=== PATIENT | male | born 1980 | race Caucasian/White ===

== ENCOUNTER 2023-08-16 17:33 | Outpatient (RCR) | payer OTHER, SELFPAY | END 2023-08-16 23:59 | disposition home or self-care (01) | LOC: CRHB 17:33 | PROVIDERS: ATTENDING PHYSICIAN Internal Medicine Cardiovascular Disease; FAMILY PHYSICIAN Physician Assistant Medical | DX: Z95.4 Presence of other heart-valve replacement (principal) | CPT/HCPCS: 93798 ==

== ENCOUNTER 2023-08-18 17:24 | Outpatient (RCR) | payer OTHER, SELFPAY | END 2023-08-18 23:59 | disposition home or self-care (01) | LOC: CRHB 17:24 | PROVIDERS: ATTENDING PHYSICIAN Internal Medicine Cardiovascular Disease; FAMILY PHYSICIAN Physician Assistant Medical | DX: Z95.4 Presence of other heart-valve replacement (principal) | CPT/HCPCS: 93798 ==

== ENCOUNTER → 2023-12-22 08:06 | Outpatient (REF) | payer OTHER, SELFPAY | LOC: RCS 08:06 | PROVIDERS: ATTENDING PHYSICIAN Internal Medicine Cardiovascular Disease; FAMILY PHYSICIAN Physician Assistant Medical | DX: Z98.890 Other specified postprocedural states (principal); I34.0 Nonrheumatic mitral (valve) insufficiency; R00.2 Palpitations | CPT/HCPCS: 93005; 93306 ==

== ENCOUNTER 2024-12-02 12:18 | Inpatient (IN) | payer OTHER, SELFPAY ==
[2024-12-02] VITALS (15 sets, daily range): BP systolic 91–120; BP diastolic 56–73; BMI 22.6
--- NOTE | 2024-12-02 09:50 | ED.GENMED ---
History of Present Illness
<Vitaliy Roman PA-C - Last Filed: 12/02/24 14:03>
General
Chief Complaint: Abdominal Symptoms
Time Seen by Provider: 12/02/24 09:43
History of Present Illness
History of Present Illness:
44-year-old male with history of cochlear implants, and mitral valve insufficiency status post mitral valve repair in 2022 presents to the emergency department for evaluation of melanotic stool and syncopal events. He states he has been having
upper abdominal pain and poor appetite for the past week but in the past 48 hours developed melanotic stool. Last night he had large volume of black vomitus. He is on chronic baby aspirin after cardiac surgery, no anticoagulants. Denies alcohol
or tobacco use. Does not routinely use other NSAIDs. Syncopized in the waiting room prompting emergent evaluation in the ED
Past History
<Vitaliy Roman PA-C - Last Filed: 12/02/24 14:03>
Past History
ED Past Medical History: Psychiatric (Anxiety) and Other (Headaches, Deaf left ear. Valve disorder)
ED Past Surgical History: Other (Duodenum twisted and repaired at one week old., Cochlear implant, Hernia repair)
Social History
Tobacco: Non-smoker
Alcohol: None
Personal: Single
Living: with family
Employment: Employed
Family History
Family History: Other (Noncontributory)
Review of Systems
<Vitaliy Roman PA-C - Last Filed: 12/02/24 14:03>
Review of Systems
Allergies reviewed?: Yes
All Other Systems: ROS reviewed and negative except as documented in HPI and ROS
Phy Exam
<Vitaliy Roman PA-C - Last Filed: 12/02/24 14:03>
Physical Exam
Physical Exam:
GEN: Pale, ill-appearing
HEENT: Oral mucosa moist, no scleral icterus
Cardiac: Tachycardic, regular, thready radial pulses bilaterally
Lung: No respiratory distress, no tachypnea
Abdomen: Soft, nontender
MSK: No gross deformity or injuries
Skin: Good color, profoundly pale
Neuro: Alert, answers questions appropriately
Psych: Calm, cooperative
Course
<Vitaliy Roman PA-C - Last Filed: 12/02/24 14:03>
Orders/Labs/Results
Orders:
Orders
12/02/24 09:48
0.9% Sodium Chloride 1000 ml [Nss] 1,000 ml IV BOLUS
Pantoprazole [Protonix IV] 80 mg IV NOW STA
12/02/24 09:49
Electrocardiogram (*1) Urgent
Reason for Study: Syncope
EKG- Treatment ONCE
12/02/24 09:51
Type+Screen Urgent
Complete Blood Count/With Diff Urgent
Comprehensive Metabolic Panel Urgent
Prothrombin Time Urgent
12/02/24 10:00
Pantoprazole 80 mg/100 ml Nss [Protonix] 80 mg in 100 ml IV Q10H
12/02/24 11:53
Admit/Transfer Patient As Directed
Co-Sign Provider:
Level of Care: Inpatient admission
Assign to:: Telemetry
Physician / Group: Hospitalist
Diagnosis: Melena
Reason for Telemetry: Other
Other Reason for Telemetry: GIB
Date to Stop Telemetry: 12/04/24
Time to Stop Telemetry: 11:00
Reason for Hospitalization: Melena
Expected length of stay greater than two midnights?: Yes
ELOS- Estimated Length of Stay in days: 2
I certify the patient meets the requirements for IP care: Yes
PRN Pain Medication Management As Directed
May give lesser potent ordered pain med per pt: Yes
preference::
Protocol:: Medication orders for pain may be administered in a
manner that supports deferring to patient preference
when the pt is:
- Requesting an ordered lesser potent pain medication.
Least to most potent pain medications are defined
as: acetaminophen < NSAID < tramadol < opioids
(morphine, oxycodone, hydromorphone).
- Requesting a lesser dose of the same medication IF
ORDERED.
- Requesting a less intrusive route of administration
if both routes are prescribed by the provider (PO <
IV).
12/02/24 11:54
Code Status As Directed
Resuscitation Status: Full Code
12/02/24 12:10
Hemoglobin Routine
12/04/24 11:00
DC Protocol for Telemetry ONCE
Abnormal Lab Results
12/02/24 12/02/24
09:51 12:10
WBC 11.7 H 10^3/uL
(4.8-10.8)
RBC 3.97 L 10^6/uL
(4.70-6.10)
Hgb 12.6 L g/dL 12.0 L g/dL
(13.0-18.0) (13.0-18.0)
Hct 36.3 L %
(39.0-52.0)
MCH 31.7 H pg
(27.0-31.0)
MPV 10.6 H fL
(7.4-10.4)
Abs Immat Gran (auto) 0.1 H 10^3/uL
(0-0.05)
Absolute Neuts (auto) 8.0 H 10^3/uL
(1.4-6.5)
PT 16.5 H Sec
(11.4-14.6)
Chloride 115 H mmol/L
(98-107)
Carbon Dioxide 18 L mmol/L
(22-30)
BUN 48 H mg/dl
(9-20)
Glucose 163 H mg/dl
(70-99)
AST 16 L U/L
(17-59)
Total Protein 5.7 L g/dl
(6.3-8.2)
12/02/24 12:10
12/02/24 09:51
Vital Signs
Initial and Last Documented VS:
Initial Vital Signs
Pulse Resp BP Pulse Ox
96 23 92/56 96
12/02/24 09:43 12/02/24 09:43 12/02/24 09:43 12/02/24 09:43
Last Documented Vital Signs
Pulse Resp BP Pulse Ox
94 14 93/67 100
12/02/24 10:15 12/02/24 10:15 12/02/24 10:00 12/02/24 10:15
<Augustin Weldon, DO - Last Filed: 12/02/24 12:00>
Orders/Labs/Results
Orders:
Orders
12/02/24 09:48
0.9% Sodium Chloride 1000 ml [Nss] 1,000 ml IV BOLUS
Pantoprazole [Protonix IV] 80 mg IV NOW STA
12/02/24 09:49
Electrocardiogram (*1) Urgent
Reason for Study: Syncope
EKG- Treatment ONCE
12/02/24 09:51
Type+Screen Urgent
Complete Blood Count/With Diff Urgent
Comprehensive Metabolic Panel Urgent
Prothrombin Time Urgent
12/02/24 10:00
Pantoprazole 80 mg/100 ml Nss [Protonix] 80 mg in 100 ml IV Q10H
12/02/24 11:53
Admit/Transfer Patient As Directed
Co-Sign Provider:
Level of Care: Inpatient admission
Assign to:: Telemetry
Physician / Group: Hospitalist
Diagnosis: Melena
Reason for Telemetry: Other
Other Reason for Telemetry: GIB
Date to Stop Telemetry: 12/04/24
Time to Stop Telemetry: 11:00
Reason for Hospitalization: Melena
Expected length of stay greater than two midnights?: Yes
ELOS- Estimated Length of Stay in days: 2
I certify the patient meets the requirements for IP care: Yes
PRN Pain Medication Management As Directed
May give lesser potent ordered pain med per pt: Yes
preference::
Protocol:: Medication orders for pain may be administered in a
manner that supports deferring to patient preference
when the pt is:
- Requesting an ordered lesser potent pain medication.
Least to most potent pain medications are defined
as: acetaminophen < NSAID < tramadol < opioids
(morphine, oxycodone, hydromorphone).
- Requesting a lesser dose of the same medication IF
ORDERED.
- Requesting a less intrusive route of administration
if both routes are prescribed by the provider (PO <
IV).
12/02/24 11:54
Code Status As Directed
Resuscitation Status: Full Code
12/02/24 12:10
Hemoglobin Routine
12/04/24 11:00
DC Protocol for Telemetry ONCE
Abnormal Lab Results
12/02/24 12/02/24
09:51 12:10
WBC 11.7 H 10^3/uL
(4.8-10.8)
RBC 3.97 L 10^6/uL
(4.70-6.10)
Hgb 12.6 L g/dL 12.0 L g/dL
(13.0-18.0) (13.0-18.0)
Hct 36.3 L %
(39.0-52.0)
MCH 31.7 H pg
(27.0-31.0)
MPV 10.6 H fL
(7.4-10.4)
Abs Immat Gran (auto) 0.1 H 10^3/uL
(0-0.05)
Absolute Neuts (auto) 8.0 H 10^3/uL
(1.4-6.5)
PT 16.5 H Sec
(11.4-14.6)
Chloride 115 H mmol/L
(98-107)
Carbon Dioxide 18 L mmol/L
(22-30)
BUN 48 H mg/dl
(9-20)
Glucose 163 H mg/dl
(70-99)
AST 16 L U/L
(17-59)
Total Protein 5.7 L g/dl
(6.3-8.2)
12/02/24 12:10
12/02/24 09:51
Vital Signs
Initial and Last Documented VS:
Initial Vital Signs
Pulse Resp BP Pulse Ox
96 23 92/56 96
12/02/24 09:43 12/02/24 09:43 12/02/24 09:43 12/02/24 09:43
Last Documented Vital Signs
Pulse Resp BP Pulse Ox
94 14 93/67 100
12/02/24 10:15 12/02/24 10:15 12/02/24 10:00 12/02/24 10:15
<Vitaliy Roman PA-C - Last Filed: 12/02/24 14:03>
MDM/Problems Addressed
MDM/Problems Addressed:
Patient's hemoglobin is acutely decreased however not to the degree suspected on initial evaluation given his pallor and syncope. Nevertheless he has evidence of hematemesis and melena suggestive of upper GI bleed, started on PPI drip and will
admit for further management
<Vitaliy Roman PA-C - Last Filed: 12/02/24 14:03>
*Critical Care Note
Total Time (30-74mins, 75-104mins- exclusive of procedures): Not Applicable
ED Attending Note
<Vitaliy Roman PA-C - Last Filed: 12/02/24 14:03>
-
Portions of this chart may have been created with voice recognition software.� Occasional wrong word or��sound alike� substitutions may have occurred due to the inherent limitations of voice recognition software.
<Augustin Weldon DO - Last Filed: 12/02/24 12:00>
ED Attending Note
Patient seen and examined by attending physician: Yes
I performed the substantive portion of visit, reviewed & personally made and approve the management plan that is documented in note by myself or TITI.: Yes
Discharge Plan
Departure
Patient Disposition: Admit
Date of Disposition: 12/02/24
Time of Disposition: 10:31
Admit to: IMU
Presentation/result/management discussed w/ accepting MD/DO: Hospitalist
Discharge Problem:
Acute upper GI bleed
[2024-12-02] MEDS: PROTONIX IV 80 MG IV (09:59)
[2024-12-02] MEDS: NSS 1000 IV (09:59)
[2024-12-02 10:09] LABS: % Basophils 0.3 % (0-2); % Eosinophils 0.3 % (0-6); % Immature Granulocytes 0.4 % (0-0.5); % Lymphocytes 26.6 % (20.5-51.1); % Monocytes 4.4 % (1.7-9.3); Absolute Immature Granulocytes 0.1 10^3/uL (0-0.05); Absolute Lymphocytes 3.1 10^3/uL (1.2-3.4); Absolute Monocytes 0.5 10^3/uL (0.1-0.6); Hematocrit 36.3 % (39.0-52.0); Hemoglobin 12.6 g/dL (13.0-18.0); Mean Corp Hgb Conc. 34.7 g/dL (33.0-37.0); Mean Corpuscular Hgb 31.7 pg (27.0-31.0); Mean Corpuscular Volume 91.4 fL (80.0-94.0); Mean Platelet Volume 10.6 fL (7.4-10.4); Nucleated Red Blood Cells % 0 % (-); Platelet Count 159 10^3/uL (130-400); Red Blood Cell Count 3.97 10^6/uL (4.70-6.10); Red Cell Dist. Width 12.8 % (11.5-14.5); White Blood Cell Count 11.7 10^3/uL (4.8-10.8)
[2024-12-02] MEDS: PROTONIX 100 IV ×2 (10:21→21:39)
[2024-12-02 10:22] LABS: ALT (SGPT) 16 U/L (0-50); AST (SGOT) 16 U/L (17-59); Albumin 3.7 g/dl (3.5-5.0); Alkaline Phosphatase 47 U/L (38-126); Blood Urea Nitrogen 48 mg/dl (9-20); Calcium 8.6 mg/dl (8.4-10.2); Carbon Dioxide 18 mmol/L (22-30); Chloride 115 mmol/L (98-107); Glucose 163 mg/dl (70-99); Potassium 3.9 mmol/L (3.5-5.1); Sodium 142 mmol/L (135-145); Total Bilirubin 0.6 mg/dl (0.2-1.3); Total Protein 5.7 g/dl (6.3-8.2); eGFR > 60.00
[2024-12-02 10:25] LABS: PT 16.5 Sec (11.4-14.6)
--- NOTE | 2024-12-02 11:12 | HPS.HSE ---
Family Physician
-
Family Physician: Isabela Bates PA-C
Chief Complaint
-
Melena
History of Present Illness
44-year-old male presented with melanotic stool 3 episodes since last night. This morning he also had black-colored vomiting. He also had abdominal pain for the past 1 week had a pre syncopal event in the waiting room. He denies taking any NSAIDs
or drinking any alcohol.
Medical History
Past Medical History
Past Medical History: Reports Psychiatric (Anxiety) and Other
Additional Past Medical History:
Headaches, deafness in left ear, mitral valve disorder, hydrocephalus, migraines
Past Surgical History: Reports Other
Additional Past Surgical History:
Cochlear implant, hernia repair, mitral valve repair, duodenal surgery as a child
Social History
Tobacco: Non-smoker
Alcohol: None
Drug: None
Personal: Single
Living: With Family
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
Family History
Family History: Cancer ( ovarian cancer mother bladder cancer father,)
Allergies / Home Medications
Allergies reflects when Allergies were last updated in [employer].
Home Medications with original date entered in [employer]
Allergy/Medication List:
Allergies
Allergy/AdvReac Type Severity Reaction Status Date / Time
citalopram [From Celexa] Allergy Unknown Verified 12/02/24 09:43
erythromycin base Allergy Exacerbates Verified 12/02/24 09:43
Hearing
Loss
Home Medications
acetaminophen 500 mg tablet (Tylenol Extra Strength) 500 mg PO Q6HPRN PRN MILD PAIN 12/19/19
multivitamin 1 tab PO DAILY Supplement 04/07/23
aspirin 81 mg chewable tablet 81 mg PO DAILY Blood clot prevention/tx #0 tabs 05/16/23
metoprolol succinate 25 mg tablet,extended release 24 hr (Toprol XL) 12.5 mg (1/2 x 25 mg) PO DAILY #30 tabs 05/16/23
loperamide 2 mg tablet 2 mg PO BIDPRN PRN diarrhea 12/02/24
topiramate 100 mg tablet 100 mg PO BID 12/02/24
Review of Systems
-
A 12 point ROS was completed and negative except as noted: Yes
Respiratory: Denies Trouble Breathing
Cardiac: Denies Chest Pain
Abdomen/GI: Reports Abdominal Pain, Vomiting and Black Stools; Denies Bloody Stools
Physical Exam
Vital Signs
Vital Signs
Pulse Resp BP Pulse Ox
94 14 93/67 100
12/02/24 10:15 12/02/24 10:15 12/02/24 10:00 12/02/24 10:15
Physical Exam
General: Other (pale)
Respiratory: Clear
Cardiac: S1/S2 and Regular Rhythm
GI: Soft and Tender (mild epigastric)
Neuro: AO x 3 and Nonfocal/grossly intact
Psych: Intact Judgment/Insight
Laboratory Results
-
12/02/24 09:51
Laboratory Results
PT 16.5 Sec (11.4-14.6) H 12/02/24 09:51
INR 1.30 12/02/24 09:51
Total Bilirubin 0.6 mg/dl (0.2-1.3) 12/02/24 09:51
AST 16 U/L (17-59) L 12/02/24 09:51
ALT 16 U/L (0-50) 12/02/24 09:51
Alkaline Phosphatase 47 U/L (38-126) 12/02/24 09:51
Impression/Plan
-
IMPRESSION/PLAN:
# Melena and 1 episode of coffee-ground emesis
Hemodynamic instability
With elevated BUN likely upper GI bleed
Not on any anticoagulants as outpatient. On aspirin after mitral valve surgery
Follow H&H-if trending lower may need blood. ER is going to follow in order.
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
PPI drip
N.p.o. with IV fluids
Type and screen
GI evaluation-needs EGD
# Pre-syncope likely secondary to upper GI bleed-continue orthostatic check with IV fluids
# Mitral valve repair on 05/12/[address] Bo
Echo 12/22/2023-normal LV size and systolic function. Mild concentric LVH. EF 55 to 60%. Normal diastolic function. Normal RV size and function. Status post mitral valve repair, trace MR
History of pleural effusion post valve repair requiring thoracentesis 850 mL of fluid evacuated on 05/26/23-no cytology available
Hold metoprolol with syncope
# Migraines and hydrocephalus-continue Topamax
# Anxiety
# History of cochlear implant on the right for hearing impairment. Deaf in the left ear
# Hemangioma of the left hepatic lobe
# DVT prophylaxis-SCDs
# Full code
Discussed with ER attending
Discussed with father at bedside
--- NOTE | 2024-12-02 12:48 | CON.GI ---
Addendum entered and electronically signed by David Sears MD 12/02/24 15:48:
I saw and examined the patient.
The PA's note was reviewed and I agree with the note.
Comment:
44-year-old male presenting with multiple episodes of melena and episode of coffee-ground emesis this morning. He had syncopized in the ER. Concerning for intermittent brisk upper GI bleed, plan for EGD today.
Original Note:
Consultation
-
Date/Time Consultation Requested: 12/02/24 1200
Date/Time Consultation Performed: 12/02/24 1245
Requesting Provider: Danae Stevenson MD
Performing Provider: JAGRUTI Allen, David Sears MD
Reason for Consultation: GI bleed
Medical History
Chief Complaint / HPI
Chief Complaint: black stools
History of Present Illness:
Pt is a 44yo with hx MVR 2 years ago on ASA, anxiety, headaches, deafness with cochlear implant , hydrocephalus, liver hemangioma, duodenal surgery as child with onset of black stools. In ER noted with hbg 12.6 with BUN 48 and period of syncope
in waiting room with hypotension. In review with patient did not feel well last PM with multiple black stools. He has small episode of dark emesis several hours ago without recurrence. No hx GI bleed, NSAID use other than ASA or other
anticoagulation use. He admits to recent GERD and mild abdominal pain, but denies odynophagia, dysphagia, prior constipation, diarrhea, or red stools. no hx EGD or colonoscopy in past. No new medications.
Past Medical History
Past Medical History: Psychiatric (anxiety) and Other (headaches, deafness, hydrocephalus, liver hemangioma)
Past Surgical History: Cardiac (MVR) and Other (duodenal surgery as child )
Social History
Tobacco: Non-Smoker
Alcohol: None
Drug: None
Living: With Family
Family History
Family History: Other (brother with ? crohns , mother with ovarian CA, father with bladder CA)
Allergies / Home Medications
Allergy/AdvReac Type Severity Reaction Status Date / Time
citalopram [From Celexa] Allergy Unknown Verified 12/02/24 09:43
erythromycin base Allergy Exacerbates Verified 12/02/24 09:43
Hearing
Loss
�Medication �Instructions �Recorded
acetaminophen 500 mg tablet 500 mg PO Q6HPRN PRN MILD PAIN 12/19/19
(Tylenol Extra Strength)
multivitamin 1 tab PO DAILY Supplement 04/07/23
aspirin 81 mg chewable tablet 81 mg PO DAILY Blood clot 05/16/23
prevention/tx #0 tabs
metoprolol succinate 25 mg 12.5 mg (1/2 x 25 mg) PO DAILY #30 05/16/23
tablet,extended release 24 hr tabs
(Toprol XL)
loperamide 2 mg tablet 2 mg PO BIDPRN PRN diarrhea 12/02/24
topiramate 100 mg tablet 100 mg PO BID 12/02/24
Review of Systems
-
History Source: Patient and Family
Constitutional: Reports No Symptoms
EENT: Reports No Symptoms
Respiratory: Reports No Symptoms
Cardiac: Reports Syncope
Abdomen/GI: Reports Abdominal Pain, Vomiting (x 1 small volume several hours ago without recurrence ) and Black Stools
: Reports No Symptoms
Musculoskeletal: Reports No Symptoms
Skin: Reports No Symptoms
Neurological: Reports Weakness
Endocrine: Reports No Symptoms
Hematologic/Lymphatic: Reports Bleeding
Vital Signs
Pulse Resp BP Pulse Ox
94 14 93/67 100
12/02/24 10:15 12/02/24 10:15 12/02/24 10:00 12/02/24 10:15
Physical Exam
Exam
General: Other (pale appearing, some chronic difficulty with hearing but able to lip read )
HEENT: Normocephalic
Respiratory: Clear
Cardiac: Regular Rhythm
GI: Soft, Non Tender and Non Distended
Musculoskeletal: No Clubbing and No Cyanosis
Skin: Warm and Dry
Neuro: Awake, Alert, AO x 3 and Other (hearing loss )
Psych: Calm
Results
WBC 11.7 10^3/uL (4.8-10.8) H 12/02/24 09:51
Hgb 12.0 g/dL (13.0-18.0) L 12/02/24 12:10
Hct 36.3 % (39.0-52.0) L 12/02/24 09:51
MCV 91.4 fL (80.0-94.0) 12/02/24 09:51
Plt Count 159 10^3/uL (130-400) 12/02/24 09:51
Absolute Neuts (auto) 8.0 10^3/uL (1.4-6.5) H 12/02/24 09:51
PT Cancelled 12/02/24 12:03
INR Cancelled 12/02/24 12:03
Sodium 142 mmol/L (135-145) 12/02/24 09:51
Potassium 3.9 mmol/L (3.5-5.1) 12/02/24 09:51
Chloride 115 mmol/L (98-107) H 12/02/24 09:51
Carbon Dioxide 18 mmol/L (22-30) L 12/02/24 09:51
BUN 48 mg/dl (9-20) H 12/02/24 09:51
Creatinine 1.2 mg/dL (0.7-1.3) 12/02/24 09:51
Calcium 8.6 mg/dl (8.4-10.2) 12/02/24 09:51
Total Bilirubin 0.6 mg/dl (0.2-1.3) 12/02/24 09:51
AST 16 U/L (17-59) L 12/02/24 09:51
ALT 16 U/L (0-50) 12/02/24 09:51
Alkaline Phosphatase 47 U/L (38-126) 12/02/24 09:51
Diagnostic Image Results:
Prior GI Procedures:
EGD: none
Colonoscopy: none
Assessment / Plan
-
Pt is a 44yo with hx MVR 2 years ago on ASA, anxiety, headaches, deafness with cochlear implant , hydrocephalus, liver hemangioma, duodenal surgery as child with onset of black stools. In ER noted with hbg 12.6 with BUN 48 and period of syncope
in waiting room with hypotension. In review with patient did not feel well last PM with multiple black stools. He has small episode of dark emesis several hours ago without recurrence. No hx GI bleed, NSAID use other than ASA or other
anticoagulation use. He admits to recent GERD and mild abdominal pain, but denies odynophagia, dysphagia, prior constipation, diarrhea, or red stools. no hx EGD or colonoscopy in past. No new medications.
-melena
-syncope in ER
-hypotension
-MVR with daily ASA use
-duodenal surgery as due to obstruction
other med problems:
-anxiety
- deafness with cochlear implant
- hydrocephalus
-liver hemangioma
PLAN:
etiology of symptoms related to upper GI bleeding with melena, hypotension, syncope etc - PUD, ectasia, mass vs other
plan for EGD today
cont NPO
trend hbg
cont PPI gtt
family updated
updated nursing staff
-
-
Thank you for consultation and allowing me to participate in the patient's care. Please call the division merchandise manager GI physician during the after hours with any questions or concerns.
[2024-12-02] MEDS: TOPAMAX 100 MG PO (21:39)
[2024-12-03] MEDS: D5/0.45%NACL 1000 IV ×2 (00:07→08:47)
[2024-12-03 01:42] LABS: Hematocrit 27.6 % (39.0-52.0); Hemoglobin 10.2 g/dL (13.0-18.0)
[2024-12-03 03:30] VITALS: BP 113/60
[2024-12-03 06:02] LABS: Hematocrit 27.5 % (39.0-52.0); Hemoglobin 9.9 g/dL (13.0-18.0)
[2024-12-03 06:06] LABS: ALT (SGPT) 16 U/L (0-50); AST (SGOT) 17 U/L (17-59); Albumin 3.1 g/dl (3.5-5.0); Alkaline Phosphatase 46 U/L (38-126); Blood Urea Nitrogen 25 mg/dl (9-20); Carbon Dioxide 19 mmol/L (22-30); Chloride 118 mmol/L (98-107); Estimated Creatinine Clearance 74 ml/min; Glucose 137 mg/dl (70-99); Potassium 4.2 mmol/L (3.5-5.1); Sodium 141 mmol/L (135-145); Total Bilirubin 0.5 mg/dl (0.2-1.3); eGFR > 60.00
[2024-12-03 08:13] VITALS: BP 110/62
[2024-12-03] MEDS: PROTONIX 100 IV ×2 (08:31→18:40)
[2024-12-03] MEDS: TOPAMAX 100 MG PO ×2 (08:31→20:14)
--- NOTE | 2024-12-03 11:26 | W.PN.GI.CBS2 ---
Addendum entered and electronically signed by Tam Bryant MD 12/03/24 16:37:
I saw and evaluated the patient. I reviewed the resident�s note and agree with findings and plan as documented in the resident�s note.
44-year-old male past medical history of mitral valve repair on aspirin, prior duodenal surgery presenting with melena. Underwent upper endoscopy with Dr. Sears yesterday which I personally reviewed the pictures. He was treated with epi and cautery
on a visible vessel of the duodenal ulcer which then bled and Dr. Sears placed an Ovesco. No bloody bowel movements overnight. Slow drift in hemoglobin but suspect he is calibrating from yesterday.
Suspect ulcer either due to aspirin (no other NSAID use) versus H. pylori reviewed with patient today. Recommend IV PPI drip for 72 hours given active bleeding and high risk ulcer. Advance to full liquid today. Will need H. pylori testing
outpatient reviewed with patient as well.
Original Note:
Today's Communication / Plan
-
Advance to full liquid diet
Continuous infusion of Protonix drip to complete 72 hour course.
No BM in past 24 hours-- if no BM by the end of the day, will start bowel regimen
Monitor H&H
Assessment / Plan
-
Pt is a 44yo with hx MVR 2 years ago on ASA, anxiety, headaches, deafness with cochlear implant , hydrocephalus, liver hemangioma, duodenal surgery as child with onset of black stools. In ER noted with hbg 12.6 with BUN 48 and period of syncope
in waiting room with hypotension. In review with patient did not feel well last PM with multiple black stools. He has small episode of dark emesis several hours ago without recurrence. No hx GI bleed, NSAID use other than ASA or other
anticoagulation use. He admits to recent GERD and mild abdominal pain, but denies odynophagia, dysphagia, prior constipation, diarrhea, or red stools. no hx EGD or colonoscopy in past. No new medications.
PLAN
Melena/UGIB with syncope in ER
D/D : 1.NSAID use (pt is on baby ASA), 2.H pylori infection
-s/p endoscopy showing non bleeding duodenal ulcer which became hemorrhagic after cautery---clip was placed, clotted blood in gastric body
-Hx of MVR (repair was in April 2024) with daily ASA use
-duodenal surgery as infant due to obstruction
-Advance to fill liquid diet
-Continuous infusion of Protonix drip to complete 72 hours post endoscopy
-No BM in past 24 hours.
-Monitor H&H-- now 9.5 <10.6
- Outpatient f/u for H pylori eval with urea breath or stool test
other med problems:
-anxiety
- deafness with cochlear implant
- hydrocephalus
-liver hemangioma
Endoscopy results 12/02/24
- Normal esophagus.
- Clotted blood in the gastric body.
- Widely patent duodenoenterostomy, characterized by
healthy appearing mucosa was found.
- Blood in the duodenal bulb and in the second portion
of the duodenum.
- Duodenal ulcer with a nonbleeding visible vessel
(Sunil Class IIa). Treated with bipolar cautery
which became actively hemorrhaging ulcer.
- Spurting duodenal ulcer with a visible vessel. Clip
(MR conditional) was placed. Clip adaptive physical education specialist: Ovesco
Endoscopy. No further bleeding.
- No specimens collected.
Subjective
Subjective
Date of Service: December 03, 2024
Tolerating liquid diet
Objective
Data Reviewed
Laboratory Data:
Laboratory Results
12/03/24 05:27
12/03/24 05:27
Laboratory Results
PT Cancelled 12/02/24 12:03
INR Cancelled 12/02/24 12:03
Total Bilirubin 0.5 mg/dl (0.2-1.3) 12/03/24 05:27
AST 17 U/L (17-59) 12/03/24 05:27
ALT 16 U/L (0-50) 12/03/24 05:27
Alkaline Phosphatase 46 U/L (38-126) 12/03/24 05:27
Vital Signs and I&O:
Vital Signs
Temp Pulse Resp BP Pulse Ox
99 F 91 14 110/62 98
12/03/24 08:13 12/03/24 08:13 12/03/24 08:13 12/03/24 08:13 12/03/24 09:30
I&O
12/02/24 12/03/24 12/04/24
06:59 06:59 06:59
Intake Total 340 / 340
Output Total 800 / 800
Balance -460 / -460
Physical Exam
Physical Exam
HEENT: Anicteric
Cardiology: Normal Sinus Rhythm, S1 and S2
Pulmonary: Clear
GI: Soft, Non Distended and Non Tender
Extremities: No Edema
[2024-12-03 11:49] LABS: Iron 77 ug/dl (49-181)
[2024-12-03 11:58] LABS: Percent Saturation 33 % (20-50); Total Iron Binding Capacity 228 ug/dl (261-462)
[2024-12-03 12:02] VITALS: BP 107/60
[2024-12-03 12:37] LABS: Vitamin D, 25-OH*** 47.6 ng/mL (30-80)
[2024-12-03 12:55] LABS: Ferritin 77.4 ng/ml (17.9-464.0)
--- NOTE | 2024-12-03 13:33 | W.PN.HOSP.TC ---
Today's Communication/Plan
-
PPI GTT
Full Liquids
Assessment / Plan
Assessment / Plan
44-year-old man with melena and 1 episode of coffee-ground emesis
# Melena and 1 episode of coffee-ground emesis secondary to upper GI bleed
Hemodynamic instability on admission
Not on any anticoagulants as outpatient. On aspirin after mitral valve surgery
Acute blood loss anemia secondary to acute GI bleed
Patient has a history of duodenal surgery as a child-diagnosis unclear
EGD 12/02/2024-normal esophagus. Clotted blood in the gastric body. Widely patent duodenal enterostomy characterized by healthy-appearing mucosa. Blood in the duodenal bulb and second portion of the duodenum. Duodenal ulcer with a nonbleeding
visible vessel treated with bipolar cautery which became actively hemorrhaging ulcer. Spurting duodenal ulcer with visible blood vessel clip was placed with no further bleeding.
PPI drip to be continued for 72 hours
Started on clears-advance to full liquids
# Pre-syncope likely secondary to upper GI bleed-continue orthostatic check with IV fluids
# Mitral valve repair on 05/12/[address] Bo
Echo 12/22/2023-normal LV size and systolic function. Mild concentric LVH. EF 55 to 60%. Normal diastolic function. Normal RV size and function. Status post mitral valve repair, trace MR
History of pleural effusion post valve repair requiring thoracentesis 850 mL of fluid evacuated on 05/26/23-no cytology available
Hold metoprolol with syncope and hypotension
# Migraines and hydrocephalus-continue Topamax
# Anxiety-not on medicines
# History of cochlear implant on the right for hearing impairment. Deaf in the left ear
# Hemangioma of the left hepatic lobe
# DVT prophylaxis-SCDs
# Full code
Discussed with father at bedside
Discussed with GI
Anticipated Discharge: Within 24 hours
Subjective/Interval History
-
Date of Service: December 03, 2024
Objective Data
-
Labs:
Laboratory Results
12/03/24 12/03/24
01:31 05:27
Hgb 10.2 L 9.9 L
Hct 27.6 L 27.5 L
Sodium 141
Potassium 4.2
Chloride 118 H
Carbon Dioxide 19 L
BUN 25 H
Creatinine 1.2
Glucose 137 H
Calcium 8.0 L
Total Bilirubin 0.5
AST 17
ALT 16
Alkaline Phosphatase 46
Vital Signs:
Vital Signs
Temp Pulse Resp BP Pulse Ox
98.6 F 97 14 107/60 99
12/03/24 12:02 12/03/24 12:02 12/03/24 12:02 12/03/24 12:02 12/03/24 12:02
I&O
12/02/24 12/03/24 12/04/24
06:59 06:59 06:59
Intake Total 340 / 340
Output Total 800 / 800
Balance -460 / -460
[2024-12-03] MEDS: MAALOX 30 ML PO (13:56)
[2024-12-03 13:57] LABS: Vitamin B12 620 pg/ml (239-931)
[2024-12-03] MEDS: NSS 1000 IV (13:57)
[2024-12-03] MEDS: D5/0.45%NACL IV (15:33)
[2024-12-03 15:47] VITALS: BP 99/50
[2024-12-03 19:35] VITALS: BP 88/52
[2024-12-03 20:57] VITALS: BP 86/50
--- NOTE | 2024-12-03 21:01 | W.PN.UPDATE ---
Update Note
Progress Note Update
BP has been trending down from 99/50-->88/52--> 86/50. hr in 80s, asymptomatic. No sign of bleeding. Patient currently on IVF 75cc/hr will give small bolus and check h&h.
hgb level dropped from 9.9 to 8.4. Will continue monitor h&h q 6hrs and transfer as needed.
[2024-12-03 22:04] LABS: Hematocrit 22.6 % (39.0-52.0); Hemoglobin 8.4 g/dL (13.0-18.0)
[2024-12-03] MEDS: NSS 250 IV (22:22)
[2024-12-04] VITALS (20 sets, daily range): BP systolic 78–111; BP diastolic 44–66
--- NOTE | 2024-12-04 03:23 | PTCARENOTE ---
BP trending down. 107/60 at 1202, 99/50 at 1547, 88/52 at 1935, manual Bp 86/50. He is asymptomatic. Notified [employer]PER[employer] who ordered Q6 H&H. HGB upon blood draw was HGB was 8.4. Notified [employer] who ordered a bolus of normal saline. Manual BP was then 98/52.
[employer] made aware, plan of care ongoing.
[2024-12-04 04:16] LABS: Hematocrit 23.6 % (39.0-52.0); Hemoglobin 8.5 g/dL (13.0-18.0)
[2024-12-04] MEDS: NSS 1000 IV ×2 (04:16→12:38)
[2024-12-04] MEDS: PROTONIX 100 IV ×2 (04:18→15:18)
[2024-12-04] MEDS: TYLENOL 650 MG PO (08:21)
[2024-12-04] MEDS: NSS 250 IV ×2 (08:28→12:18)
[2024-12-04 09:09] LABS: Hematocrit 22.3 % (39.0-52.0); Hemoglobin 7.9 g/dL (13.0-18.0); Hemoglobin 8.1 g/dL (13.0-18.0); Mean Corp Hgb Conc. 35.9 g/dL (33.0-37.0); Mean Corpuscular Volume 89.1 fL (80.0-94.0); Mean Platelet Volume 10.5 fL (7.4-10.4); Platelet Count 110 10^3/uL (130-400); Red Blood Cell Count 2.47 10^6/uL (4.70-6.10); Red Cell Dist. Width 12.9 % (11.5-14.5); White Blood Cell Count 9.1 10^3/uL (4.8-10.8)
--- NOTE | 2024-12-04 09:19 | W.PN.HOSP.TC ---
Today's Communication/Plan
-
Add a.m. TSH and cortisol level
Blood cultures
Chest x-ray
Obstruction series
Keep n.p.o. until x-rays are back
IV fluids with bolus and maintenance
Urinalysis
Assessment / Plan
Assessment / Plan
44-year-old man with melena and 1 episode of coffee-ground emesis
Seen earlier late documentation.
Fever of 100.6. Patient feels tired but no other symptoms. Denied abdominal pain. Has not had a bowel movement since ER. Has a cough no dysuria. Blood pressure low this morning
On examination awake alert
Denies any symptoms
Cardiovascular system S1-S2 appreciated
Chest few rales bilaterally
Abdomen soft and nontender
# Melena and 1 episode of coffee-ground emesis secondary to upper GI bleed
Hemodynamic instability on admission
Not on any anticoagulants as outpatient. On aspirin after mitral valve surgery
Acute blood loss anemia secondary to acute GI bleed
Patient has a history of duodenal surgery as a child-diagnosis unclear
EGD 12/02/2024-normal esophagus. Clotted blood in the gastric body. Widely patent duodenal enterostomy characterized by healthy-appearing mucosa. Blood in the duodenal bulb and second portion of the duodenum. Duodenal ulcer with a nonbleeding
visible vessel treated with bipolar cautery which became actively hemorrhaging ulcer. Spurting duodenal ulcer with visible blood vessel clip was placed with no further bleeding.
PPI drip to be continued for 72 hours
Obstr series per GI advise.
Started on clears-advance to full liquids-Hold NPO NOW till GI evaluates.
# Pre-syncope likely secondary to upper GI bleed-continue orthostatic check with IV fluids. Check TSH and cortisol level
# Hypotension-unclear reason if secondary to GI bleed versus other. Patient is not symptomatic. Bolus with maintenance IV fluids ordered. Check blood pressure both extremities. Continue to hold metoprolol
# Fever-evening of 12/02/2024-likely postoperative fever. 1 more episode of 100.6 this morning. Check blood cultures chest x-ray, urinalysis with reflex to culture,
# Mitral valve repair on 05/12/[address] Bo
Echo 12/22/2023-normal LV size and systolic function. Mild concentric LVH. EF 55 to 60%. Normal diastolic function. Normal RV size and function. Status post mitral valve repair, trace MR
History of pleural effusion post valve repair requiring thoracentesis 850 mL of fluid evacuated on 05/26/23-no cytology available
Hold metoprolol with syncope and hypotension
# Migraines and hydrocephalus-hold Topamax this morning until blood pressure stable
# Anxiety-not on medicines
# History of cochlear implant on the right for hearing impairment. Deaf in the left ear
# Hemangioma of the left hepatic lobe
# DVT prophylaxis-SCDs
# Full code
Discussed with nursing at bedside
Discussed with GI
Anticipated Discharge: > 48 hours
Subjective/Interval History
-
Date of Service: December 04, 2024
Objective Data
-
Labs:
Laboratory Results
12/03/24 12/04/24 12/04/24
21:58 04:00 08:50
WBC 9.1
Hgb 8.4 L 8.5 L 7.9 L
Hct 22.6 L 23.6 L
Plt Count
Sodium
Potassium
Chloride
Carbon Dioxide
BUN
Creatinine
Glucose
Calcium
12/04/24 12/04/24 12/04/24
08:50 08:50 15:00
WBC
Hgb 8.1 L Pending
Hct 22.0 L 22.3 L Pending
Plt Count 110 L D
Sodium Pending
Potassium Pending
Chloride Pending
Carbon Dioxide Pending
BUN Pending
Creatinine Pending
Glucose Pending
Calcium Pending
Vital Signs:
Vital Signs
Temp Pulse Resp BP Pulse Ox
100.6 F H 93 18 86/44 96
12/04/24 07:00 12/04/24 07:00 12/04/24 07:00 12/04/24 08:03 12/04/24 07:00
I&O
12/03/24 12/04/24 12/05/24
06:59 06:59 06:59
Intake Total 340 / 340 480 / 480 120 / 120
Output Total 800 / 800 700 / 700
Balance -460 / -460 -220 / -220 120 / 120
[2024-12-04] MEDS: TOPAMAX PO (10:04)
--- NOTE | 2024-12-04 10:05 | W.PN.GI.CBS2 ---
Addendum entered and electronically signed by Tam Bryant MD 12/04/24 13:21:
Xray noted likely aspiration PNA primary team will treat with antibiotics.
Will change to clear liquid diet and monitor hb and for overt bleeding.
d/w hospitalist
Addendum entered and electronically signed by Tam Bryant MD 12/04/24 11:45:
I saw and evaluated the patient. I reviewed the resident�s note and agree with findings and plan as documented in the resident�s note.
44-year-old male past medical history of mitral valve repair on aspirin, prior duodenal surgery presenting with melena. Underwent upper endoscopy with Dr. Sears 12/02 which I personally reviewed the pictures. He was treated with epi and cautery on a
visible vessel of the duodenal ulcer which then bled and Dr. Sears placed an Ovesco. No bloody bowel movements overnight - still remains with no BM. Slow drift in hemoglobin but suspect he is calibrating.
Suspect ulcer either due to aspirin (no other NSAID use) versus H. pylori. Recommend IV PPI drip for 72 hours given active bleeding and high risk ulcer. Will need H. pylori testing outpatient reviewed with patient as well.
Today he was febrile and hypotensive; does elicit a cough. Could have PNA; diff dx includes perforation but would expect more abdominal pain. Lower suspicion active bleeding causing the hypotension given no overt bleed; Hb went from 8.4 last pm to
8.1 today. Will follow up obs series.
D/w hospitalist.
Original Note:
Today's Communication / Plan
-
Goal to stabilize blood pressure
Questionable for infection, would not proceed with EGD
No active signs of bleeding
Hemoglobin 8.1, monitor closely
Keep n.p.o. for now
Assessment / Plan
-
Pt is a 44yo with hx MVR 2 years ago on ASA, anxiety, headaches, deafness with cochlear implant , hydrocephalus, liver hemangioma, duodenal surgery as child with onset of black stools. In ER noted with hbg 12.6 with BUN 48 and period of syncope
in waiting room with hypotension. In review with patient did not feel well last PM with multiple black stools. He has small episode of dark emesis several hours ago without recurrence. No hx GI bleed, NSAID use other than ASA or other
anticoagulation use. He admits to recent GERD and mild abdominal pain, but denies odynophagia, dysphagia, prior constipation, diarrhea, or red stools. no hx EGD or colonoscopy in past. No new medications. This morning patient became hypotensive
and had one episode of fever.
PLAN
Melena/UGIB with syncope in ER
Fever
Hypotension
D/D : 1.NSAID use (pt is on baby ASA), 2.H pylori infection
-s/p endoscopy showing non bleeding duodenal ulcer which became hemorrhagic after cautery---clip was placed, clotted blood in gastric body
-Patient has 1 episode of fever in the past 24 hours and is hypotensive-- 86/48.
-Agree with IV fluids. Chest x-ray, UA, blood cultures, obstructive series have been ordered per primary team
-Hemoglobin is down to 8.1. No active signs of bleeding
- Will not proceed with EGD, questionable for infection.
-Keep NPO for now
-Continuous infusion of Protonix drip to complete 72 hours post endoscopy
-No BM in past 48 hours.
other med problems:
-anxiety
- deafness with cochlear implant
- hydrocephalus
-liver hemangioma
Endoscopy results 12/02/24
- Normal esophagus.
- Clotted blood in the gastric body.
- Widely patent duodenoenterostomy, characterized by
healthy appearing mucosa was found.
- Blood in the duodenal bulb and in the second portion
of the duodenum.
- Duodenal ulcer with a nonbleeding visible vessel
(Sunil Class IIa). Treated with bipolar cautery
which became actively hemorrhaging ulcer.
- Spurting duodenal ulcer with a visible vessel. Clip
(MR conditional) was placed. 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
Endoscopy. No further bleeding.
- No specimens collected.
Subjective
Subjective
Date of Service: December 04, 2024
Hypotensive with repeated blood pressures recently pressures 84/48,patient reports that he feels weak. A.m. hemoglobin is 8.1 <8.5. No bowel movement in the past 48 hours.
Objective
Data Reviewed
Laboratory Data:
Laboratory Results
PT Cancelled 12/02/24 12:03
INR Cancelled 12/02/24 12:03
Total Bilirubin 0.5 mg/dl (0.2-1.3) 12/03/24 05:27
AST 17 U/L (17-59) 12/03/24 05:27
ALT 16 U/L (0-50) 12/03/24 05:27
Alkaline Phosphatase 46 U/L (38-126) 12/03/24 05:27
Vital Signs and I&O:
Vital Signs
Temp Pulse Resp BP Pulse Ox
98.4 F 88 16 84/46 96
12/04/24 09:51 12/04/24 10:03 12/04/24 10:03 12/04/24 09:51 12/04/24 10:03
I&O
12/03/24 12/04/24 12/05/24
06:59 06:59 06:59
Intake Total 340 / 340 480 / 480 120 / 120
Output Total 800 / 800 700 / 700
Balance -460 / -460 -220 / -220 120 / 120
Physical Exam
Physical Exam
HEENT: Anicteric
Cardiology: Normal Sinus Rhythm, S1 and S2
Pulmonary: Clear
GI: Soft, Non Distended and Non Tender
[2024-12-04 10:07] LABS: Blood Urea Nitrogen 16 mg/dl (9-20); Calcium 7.2 mg/dl (8.4-10.2); Carbon Dioxide 18 mmol/L (22-30); Chloride 117 mmol/L (98-107); Estimated Creatinine Clearance 81 ml/min; Glucose 97 mg/dl (70-99); Potassium 3.6 mmol/L (3.5-5.1); Sodium 137 mmol/L (135-145); eGFR > 60.00
--- NOTE | 2024-12-04 10:29 | W.PN.UPDATE ---
Addendum entered and electronically signed by Danae Willoughby MD 12/04/24 10:56:
Hemoglobin slowly dropping
May need transfusion if keeps dropping and patient is hypotensive
Called again and spoke to father
Total time spent today over 50 minutes
Addendum entered and electronically signed by Danae Willoughby MD 12/04/24 10:31:
Empiric ceftriaxone after blood cultures
Original Note:
Update Note
Progress Note Update
Blood pressure still lower after the bolus.
Will move patient to IMU for closer monitoring
X-ray still pending
Called and left a message for father
[2024-12-04 10:56] LABS: TSH 1.19 uIU/ml (0.47-4.68)
--- NOTE | 2024-12-04 11:30 | PTCARENOTE ---
Pt having BP 80s/40s. temp 100.6F. MD made aware, IV bolus and tylenol administered, holding topamax per MD order. Pt having dizziness when standing, but otherwise asymptomatic. Pt denies chills, abdominal pain and tenderness, belly is soft,
nondistended. No BM's overnight. Hospitalist and GI saw pt @bedside. No improvement in BP after bolus. pt sent to CXR. Transfer orders obtained. Report called and pt transferred to higher level of care.
[2024-12-04] MEDS: NSS IV (11:42)
[2024-12-04] MEDS: ROCEPHIN 1000 MG IV (12:19)
[2024-12-04] MEDS: STERILE WATER FOR INJECTION 10 ML IV (12:19)
--- NOTE | 2024-12-04 12:45 | CM ---
CM following re: discharge planning.
Reviewed pt's chart, met with pt.
Pt is a 43 year old male, admitted with primary dx of Melena and 1 episode of coffee-ground emesis
Pt reports he lives with father and a brother in a 2SH, 6 steps to enter. 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 No DME, VN or SNF history.
PCP: Isabela Bates
Ph[facility]acy: [facility]
D/CF plan: home with anticipated no needs. Family to transport
CM will follow with discharge plan updates as hospitalization progresses
--- NOTE | 2024-12-04 12:48 | PTCARENOTE ---
Pt received from floor to ICU bed 3360 as IMU overflow. Pt AAOx3. Reporting dizziness. Also pale and hypotensive. Dr Willoughby notified. Additional 250ml bolus given. Next Hgb check ordered at 1500.
Sinus rhythm. No edema noted. Lungs CTA. Voided 350ml clear yellow urine. Sample sent to lab. Abdomen soft. Denies pain. Hyperactive bowel sounds noted.
--- NOTE | 2024-12-04 12:56 | W.PN.UPDATE ---
Update Note
Progress Note Update
X-ray and obstruction studies noted-likely has aspiration pneumonia secondary to vomiting and atelectasis. Continue ceftriaxone
Hypotension may be multifactorial including bleeding with hemoglobin drop
Use pressors if needed to keep MAP over 65 mmHg
If hemoglobin drops will give PRBCs
[2024-12-04 13:06] LABS: Urine Albumin Negative (Neg - Trace); Urine Bilirubin Negative (Negative); Urine Character Clear (Clear); Urine Color Yellow; Urine Glucose Negative (Negative); Urine Ketone Negative (Negative); Urine Leukocyte Negative (Negative); Urine Nitrite Negative (Negative); Urine Occult Blood Negative (Negative); Urine Urobilinogen Negative (Neg - 1+); Urine pH 6.5 (5.0-9.0)
--- NOTE | 2024-12-04 14:53 | W.PN.UPDATE ---
Update Note
Progress Note Update
met with pt and father
He feels tired.
PRN Levophed
Unclear cause of shock
If Hb drops will transfuse
Consent obtained
D/W RN
D/W father.
[2024-12-04] MEDS: PROTONIX IV (15:19)
[2024-12-04 15:28] LABS: Hematocrit 20.8 % (39.0-52.0); Hemoglobin 7.5 g/dL (13.0-18.0)
--- NOTE | 2024-12-04 17:02 | W.PN.UPDATE ---
Update Note
Progress Note Update
Hemoglobin 7.5-transfuse 1 unit of blood
--- NOTE | 2024-12-04 18:32 | PTCARENOTE ---
1 unit PRBC infusing per order. Pt continues to report dizziness. Ate less than half bowl of chicken broth for lunch. Refused clear liquids for dinner. Denies nausea or abdominal pain.
Transferred to IMU bed 3351 with blood and Protonix gtt infusing.
--- NOTE | 2024-12-04 18:42 | PTCARENOTE ---
Transferred into [facility]- IMU monitors intact. PRBC infusing without difficulty. ST 90 on tele BP 95/59. Tolerating clear liq diet at this time. Call caldwell in reach.
[2024-12-04] MEDS: TOPAMAX 100 MG PO (19:51)
[2024-12-05] VITALS (9 sets, daily range): BP systolic 97–114; BP diastolic 62–73
[2024-12-05] MEDS: PROTONIX 100 IV ×3 (00:51→21:23)
[2024-12-05] MEDS: NSS 1000 IV ×2 (00:51→08:57)
[2024-12-05 05:13] LABS: Hemoglobin 9.8 g/dL (13.0-18.0); Mean Corpuscular Hgb 31.3 pg (27.0-31.0); Mean Corpuscular Volume 89.5 fL (80.0-94.0); Mean Platelet Volume 10.5 fL (7.4-10.4); Platelet Count 128 10^3/uL (130-400); Red Blood Cell Count 3.13 10^6/uL (4.70-6.10); Red Cell Dist. Width 13.2 % (11.5-14.5); White Blood Cell Count 7.6 10^3/uL (4.8-10.8)
[2024-12-05 05:30] LABS: Blood Urea Nitrogen 10 mg/dl (9-20); Calcium 7.5 mg/dl (8.4-10.2); Carbon Dioxide 18 mmol/L (22-30); Chloride 119 mmol/L (98-107); Estimated Creatinine Clearance 81 ml/min; Glucose 89 mg/dl (70-99); Potassium 3.5 mmol/L (3.5-5.1); Sodium 139 mmol/L (135-145); eGFR > 60.00
--- NOTE | 2024-12-05 06:25 | PTCARENOTE ---
No acute events overnight. One unit PRBCs completed. No s/s of bleeding. Am hgb 9.8.
--- NOTE | 2024-12-05 07:38 | W.PN.GI.CBS2 ---
Addendum entered and electronically signed by Tam Bryant MD 12/05/24 15:27:
I saw and evaluated the patient. I reviewed the resident�s note and agree with findings and plan as documented in the resident�s note.
44-year-old male past medical history of mitral valve repair on aspirin, prior duodenal surgery presenting with melena. Underwent upper endoscopy with Dr. Sears 12/02 which I personally reviewed the pictures. He was treated with epi and cautery on a
visible vessel of the duodenal ulcer which then bled and Dr. Seras placed an Ovesco.
Suspect ulcer either due to aspirin (no other NSAID use) versus H. pylori. Recommend IV PPI drip for 72 hours given active bleeding and high risk ulcer. Will need H. pylori testing outpatient reviewed with patient as well.
Had hypotension and fever - found to have right sided PNA. Suspect aspiration he did vomit prior to his admission here. BP improved with antibiotics. Do not suspect hypotension is from bleeding - no overt bleeding and slow drift in hemoglobin
suspect more likely he is calibrating/diluational. However, given the drift in hemoglobin will do a second look endoscopy tomorrow as long as stable from respiratory standpoint; can consider sooner if develops overt bleeding and drop in Hb. D/w
anesthesia best to wait at least 24 hours with recent PNA yesterday unless active bleeding.
Original Note:
Today's Communication / Plan
-
Continue clears
Will wait for full 24 hours to make sure the patient is stable unless there is an active bleeding. He has not had any bowel movements in 3 days.
NPO after midnight
EGD tomorrow
Assessment / Plan
-
44-year-old male with past medical history of mitral valve repair on aspirin, prior duodenal surgery presenting with melena. Patient underwent endoscopy on 12/02 showing nonbleeding duodenal ulcer which became hemorrhagic after cautery and clip was
placed. 24 hours after the procedure patient was febrile and hypotensive with HB trending down, he was transferred to IMU, x-ray and obstruction studies noted likely has aspiration pneumonia secondary to cough. No overt bleed. Hemoglobin dropped
to 7.5 and 1 unit of PRBC transfused, HB today is 9.8. No bowel movements in the past 72 hours.
PLAN
Melena/UGIB with syncope in ER
Fever
Hypotension ---improved
D/D : Suspect ulcer with ASA use vs H pylori infection
-s/p endoscopy showing non bleeding duodenal ulcer which became hemorrhagic after cautery---clip was placed, clotted blood in gastric body
- X-ray and obstruction studies noted likely has aspiration pneumonia secondary to cough. IV ceftriaxone was initiated
- Low suspicious of active bleeding causing the hypotension given no overt bleed.
- Patient was not given pressors as BP improved with fluids --100/68
-Will wait for full 24 hours to make sure that the patient is stable unless there is active bleeding. He has not had any bowel movements and his hemoglobin dropping but slowly.
-Repeat hemoglobin today is 9.8 improved from 7.5 after one unit PRBC 12/04.
-Plan EGD tomorrow.
-Continue PPI drip for today.
-Continue clears
other med problems:
-anxiety
- deafness with cochlear implant
- hydrocephalus
-liver hemangioma
Endoscopy results 12/02/24
- Normal esophagus.
- Clotted blood in the gastric body.
- Widely patent duodenoenterostomy, characterized by
healthy appearing mucosa was found.
- Blood in the duodenal bulb and in the second portion
of the duodenum.
- Duodenal ulcer with a nonbleeding visible vessel
(Sunil Class IIa). Treated with bipolar cautery
which became actively hemorrhaging ulcer.
- Spurting duodenal ulcer with a visible vessel. Clip
(MR conditional) was placed. 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
Endoscopy. No further bleeding.
- No specimens collected.
Subjective
Subjective
Date of Service: December 05, 2024
HB dropped to 7.5, one unit of PRBC given yesterday, HB today 9.8, patient transferred to IMU.
Objective
Data Reviewed
Laboratory Data:
Laboratory Results
12/05/24 04:47
12/05/24 04:47
Laboratory Results
PT Cancelled 12/02/24 12:03
INR Cancelled 12/02/24 12:03
Total Bilirubin 0.5 mg/dl (0.2-1.3) 12/03/24 05:27
AST 17 U/L (17-59) 12/03/24 05:27
ALT 16 U/L (0-50) 12/03/24 05:27
Alkaline Phosphatase 46 U/L (38-126) 12/03/24 05:27
Vital Signs and I&O:
Vital Signs
Temp Pulse Resp BP Pulse Ox
98.6 F 86 21 107/70 92
12/05/24 07:34 12/05/24 06:00 12/05/24 06:00 12/05/24 06:00 12/05/24 06:00
I&O
12/04/24 12/05/24 12/06/24
06:59 06:59 06:59
Intake Total 480 / 480 2059 / 2059
Output Total 700 / 700 3100 / 3100
Balance -220 / -220 -1040 / -1040
Physical Exam
Physical Exam
Cardiology: Normal Sinus Rhythm
Pulmonary: Clear
GI: Soft, Non Distended and Non Tender
[2024-12-05] MEDS: TOPAMAX 100 MG PO ×2 (08:58→19:43)
--- NOTE | 2024-12-05 10:42 | PTCARENOTE ---
Assumed care of patient this morning. Pt denies any pain or nausea but states he just feels 'stiff from laying in bed for 2 days.' Patient was going to go for EDG today but it is now pushed to tomorrow. Advised we can get up to chair today if VS
stay stable and not symptomatic. Pt switched back to clear liquids, pt has a poor appetite, only took few bites of breakfast. Pt reports he is deaf without his cochlear implant on his head. He frequently takes it off because he does not like it and
prolonged wearing hurts his head. Assessment, care and VS as charted.
--- NOTE | 2024-12-05 11:56 | W.PN.HOSP.TC ---
Today's Communication/Plan
-
Clear liquid diet
Much hemoglobin
Watch for any bleeding
Continue antibiotics today
Hold off on further fluids and watch
Assessment / Plan
Assessment / Plan
44-year-old man with melena and 1 episode of coffee-ground emesis
On examination awake alert
Denies any symptoms
Cardiovascular system S1-S2 appreciated
Chest CTA
Abdomen soft and nontender
# Melena and 1 episode of coffee-ground emesis secondary to upper GI bleed
Hemodynamic instability on admission
Not on any anticoagulants as outpatient. On aspirin after mitral valve surgery
Acute blood loss anemia secondary to acute GI bleed
Patient has a history of duodenal surgery as a child-diagnosis unclear
EGD 12/02/2024-normal esophagus. Clotted blood in the gastric body. Widely patent duodenal enterostomy characterized by healthy-appearing mucosa. Blood in the duodenal bulb and second portion of the duodenum. Duodenal ulcer with a nonbleeding
visible vessel treated with bipolar cautery which became actively hemorrhaging ulcer. Spurting duodenal ulcer with visible blood vessel clip was placed with no further bleeding.
PPI drip to be continued
Started on clears
Status post 1 unit of packed red blood cells on 12/04/2024.
Hemoglobin stable today.
GI holding off on EGD today. N.p.o. after midnight in case if he needs an EGD tomorrow.
# Pre-syncope likely secondary to upper GI bleed-continue orthostatic check with IV fluids.
# Hypotension-12/04/2024-unclear reason if secondary to GI bleed versus other. Patient is not symptomatic. Continue to hold metoprolol. Blood pressure improved.
# Aspiration pneumonia/pneumonitis-ceftriaxone started-continue for now
# Fever-evening of 12/02/2024-likely postoperative fever. Treat aspiration pneumonia/pneumonitis with a short course of antibiotics
# Mitral valve repair on 05/12/[address] Bo
Echo 12/22/2023-normal LV size and systolic function. Mild concentric LVH. EF 55 to 60%. Normal diastolic function. Normal RV size and function. Status post mitral valve repair, trace MR
History of pleural effusion post valve repair requiring thoracentesis 850 mL of fluid evacuated on 05/26/23-no cytology available
Hold metoprolol with syncope and hypotension
# Migraines and hydrocephalus-Topamax
# Anxiety-not on medicines
# History of cochlear implant on the right for hearing impairment. Deaf in the left ear
# Hemangioma of the left hepatic lobe
# DVT prophylaxis-SCDs
# Full code
Discussed with nursing
Discussed with GI
Anticipated Discharge: Within 24 hours
Subjective/Interval History
-
Date of Service: December 05, 2024
Objective Data
-
Labs:
Laboratory Results
12/05/24
04:47
WBC 7.6
Hgb 9.8 L D
Hct 28.0 L
Plt Count 128 L
Sodium 139
Potassium 3.5
Chloride 119 H
Carbon Dioxide 18 L
BUN 10
Creatinine 1.1
Glucose 89
Calcium 7.5 L
Vital Signs:
Vital Signs
Temp Pulse Resp BP Pulse Ox
98.0 F 87 20 113/73 95
12/05/24 11:30 12/05/24 10:00 12/05/24 10:00 12/05/24 10:00 12/05/24 11:54
I&O
12/04/24 12/05/24 12/06/24
06:59 06:59 06:59
Intake Total 480 / 480 2059
Output Total 700 / 700 3100 / 3100 825 / 825
Balance -220 / -220 -1040 / -1040 -825 / -825
[2024-12-05] MEDS: ROCEPHIN 1000 MG IV (12:28)
[2024-12-05] MEDS: STERILE WATER FOR INJECTION 10 ML IV (12:28)
--- NOTE | 2024-12-05 15:01 | PN.CDI ---
CDI
- -
CDI:
Physician Documentation Request
Admit Date: 12/02/24 12:18
Dear Doctor,
Please review the following and provide your response in the progress notes.
Current documentation includes a diagnosis of hypotension.
Clinical Indicators:
Pt admitted with upper GI bleed.
12/04 Update progress notes:' Blood pressure still lower after the bolus.
Will move patient to IMU for closer monitoring...Hemoglobin slowly dropping
May need transfusion if keeps dropping and patient is hypotensive...
Hypotension may be multifactorial including bleeding with hemoglobin drop
Unclear cause of shock
Hemoglobin 7.5-transfuse 1 unit of blood'
12/05 GI Note: 's/p endoscopy showing non bleeding duodenal ulcer which became hemorrhagic after cautery---clip was placed, clotted blood in gastric body.
12/04- 12/05 Pt received 3 liters IVF.
Please clarify which of the following is suspected the most likely type of shock of the above symptoms and treatment rendered:
Hypovolemic shock - indicate if due to surgery, trauma or other etiology
Hemorrhagic shock - indicate if due to surgery, trauma or other etiology
Other
Use of terms such as suspected, likely, concern for, or probable (associated with a specific diagnosis that is being evaluated, monitored, or treated as if it exists) are acceptable and can be coded in the inpatient setting, when documented at the
time of discharge.
Thank you,
Mignon Pena RN, BSN
CDI Specialist
[place] [facility]
Please use your independent medical judgment in providing your response.
[2024-12-06] VITALS (18 sets, daily range): BP systolic 17–121; BP diastolic 53–93
[2024-12-06 04:41] LABS: Hematocrit 30.6 % (39.0-52.0); Hemoglobin 10.9 g/dL (13.0-18.0); Mean Corp Hgb Conc. 35.6 g/dL (33.0-37.0); Mean Corpuscular Hgb 32.1 pg (27.0-31.0); Mean Platelet Volume 10.2 fL (7.4-10.4); Platelet Count 159 10^3/uL (130-400); Red Cell Dist. Width 13.2 % (11.5-14.5); White Blood Cell Count 9.1 10^3/uL (4.8-10.8)
--- NOTE | 2024-12-06 05:03 | PTCARENOTE ---
No acute events overnight. Afebrile. No s/s of bleeding. NPO at midnight for endoscopy today. Remained on room air.
[2024-12-06] MEDS: PROTONIX 100 IV (06:26)
--- NOTE | 2024-12-06 10:33 | W.PN.GI.CBS2 ---
Documented by User: Michael Rebollar MD, Resident 12/06/24 10:45
Today's Communication / Plan
-
Added Carafate 1 g PO twice daily. It can cause constipation, okay to use MiraLAX as needed.
Clear liquid diet for now then transition to full liquid later in the day.
Assessment / Plan
-
44-year-old male with past medical history of mitral valve repair on aspirin, prior duodenal surgery presenting with melena. Patient underwent endoscopy on 12/02 showing nonbleeding duodenal ulcer which became hemorrhagic after cautery and clip was
placed. 24 hours after the procedure patient was febrile and hypotensive with HB trending down, he was transferred to IMU, x-ray and obstruction studies noted likely has aspiration pneumonia secondary to cough. No overt bleed. Hemoglobin dropped
to 7.5 and 1 unit of PRBC transfused 12/04. Patient underwent repeat endoscopy on 12/06 revealed patchy moderately erythematous mucosa was found in the duodenal bulb, one nonbleeding superficial duodenal ulcer with a [employer] clip noted with some
oozing on touching with endoscope.
PLAN
Melena/UGIB with syncope in ER
Fever--improved/resolved
Hypotension ---improved/resolved
D/D : Suspect ulcer with ASA use vs H pylori infection
-s/p endoscopy showing non bleeding duodenal ulcer which became hemorrhagic after cautery---clip was placed, clotted blood in gastric body
- X-ray and obstruction studies noted likely has aspiration pneumonia secondary to cough. IV ceftriaxone was initiated
- Low suspicious of active bleeding causing the hypotension given no overt bleed.
- Patient was not given pressors as BP improved with fluids --100/68
-Repeat hemoglobin today is 9.8 improved from 7.5 after one unit PRBC 12/04.
-Repeat endoscopy 12/06 revealed no rebleeding and patchy moderately erythematous mucosa was found in the duodenal bulb, and 1 nonbleeding superficial duodenal ulcer.
- Added Carafate 1 g PO twice daily. It can cause constipation, okay to use MiraLAX as needed.
- Clear liquid diet for now then transition to full liquid later in the day.
other med problems:
-anxiety
- deafness with cochlear implant
- hydrocephalus
-liver hemangioma
Endoscopy results 12/02/24
- Normal esophagus.
- Clotted blood in the gastric body.
- Widely patent duodenoenterostomy, characterized by
healthy appearing mucosa was found.
- Blood in the duodenal bulb and in the second portion
of the duodenum.
- Duodenal ulcer with a nonbleeding visible vessel
(Sunil Class IIa). Treated with bipolar cautery
which became actively hemorrhaging ulcer.
- Spurting duodenal ulcer with a visible vessel. Clip
(MR conditional) was placed. Clip strategic partnership representative: [employer]
Endoscopy. No further bleeding.
- No specimens collected.
Endoscopy results 12/06
The examined esophagus was normal.
The Z-line was variable and was found 40 cm from the incisors.
A 1 cm hiatal hernia was present.
No gross lesions were noted in the entire examined stomach.
Patchy moderately erythematous mucosa was found in the duodenal bulb.
One non-bleeding superficial duodenal ulcer with [employer] clip noted with
some oozing on touching with the endoscope was found in the second
portion of the duodenum. The oozing stopped at the end of the procedure.
Subjective
Subjective
Date of Service: December 06, 2024
No overnight events, no bowel movement since 12/02
Objective
Data Reviewed
Laboratory Data:
Laboratory Results
12/06/24 04:20
12/05/24 04:47
Laboratory Results
PT Cancelled 12/02/24 12:03
INR Cancelled 12/02/24 12:03
Total Bilirubin 0.5 mg/dl (0.2-1.3) 12/03/24 05:27
AST 17 U/L (17-59) 12/03/24 05:27
ALT 16 U/L (0-50) 12/03/24 05:27
Alkaline Phosphatase 46 U/L (38-126) 12/03/24 05:27
Vital Signs and I&O:
Vital Signs
Temp Pulse Resp BP Pulse Ox
97.8 F 74 99 97/66 100
12/06/24 10:15 12/06/24 10:15 12/06/24 10:15 12/06/24 10:15 12/06/24 06:00
I&O
12/05/24 12/06/24 12/07/24
06:59 06:59 06:59
Intake Total 2060 / 2060 1680 / 1680
Output Total 3100 / 3100 1375 / 1375
Balance -1040 / -1040 305 / 305
Physical Exam
Physical Exam
Cardiology: Normal Sinus Rhythm
Pulmonary: Clear
GI: Soft, Non Distended, Non Tender and Normal Bowel Sounds

Documented by User: Promise Christensen MD 12/06/24 15:02
Assessment / Plan
-
44-year-old male with past medical history of mitral valve repair on aspirin, prior duodenal surgery presenting with melena. Patient underwent endoscopy on 12/02 showing nonbleeding duodenal ulcer which became hemorrhagic after cautery and clip was
placed. 24 hours after the procedure patient was febrile and hypotensive with HB trending down, he was transferred to IMU, x-ray and obstruction studies noted likely has aspiration pneumonia secondary to cough. No overt bleed. Hemoglobin dropped
to 7.5 and 1 unit of PRBC transfused 12/04. Patient underwent repeat endoscopy on 12/06 revealed patchy moderately erythematous mucosa was found in the duodenal bulb, one nonbleeding superficial duodenal ulcer with a [employer] clip noted with some
oozing on touching with endoscope.
PLAN
Melena/UGIB with syncope in ER
Fever--improved/resolved
Hypotension ---improved/resolved
D/D : Suspect ulcer with ASA use vs H pylori infection
-s/p endoscopy showing non bleeding duodenal ulcer which became hemorrhagic after cautery---clip was placed, clotted blood in gastric body
- X-ray and obstruction studies noted likely has aspiration pneumonia secondary to cough. IV ceftriaxone was initiated
-Repeat hemoglobin today is 9.8 improved from 7.5 after one unit PRBC 12/04.
-Repeat endoscopy 12/06 revealed no rebleeding and patchy moderately erythematous mucosa was found in the duodenal bulb, and 1 nonbleeding superficial duodenal ulcer.
- Added Carafate 1 g PO twice daily. It can cause constipation, okay to use MiraLAX as needed.
- Clear liquid diet for now then transition to full liquid later in the day.
other med problems:
-anxiety
- deafness with cochlear implant
- hydrocephalus
-liver hemangioma
Endoscopy results 12/02/24
- Normal esophagus.
- Clotted blood in the gastric body.
- Widely patent duodenoenterostomy, characterized by
healthy appearing mucosa was found.
- Blood in the duodenal bulb and in the second portion
of the duodenum.
- Duodenal ulcer with a nonbleeding visible vessel
(Sunil Class IIa). Treated with bipolar cautery
which became actively hemorrhaging ulcer.
- Spurting duodenal ulcer with a visible vessel. Clip
(MR conditional) was placed. Clip strategic partnership representative: [employer]
Endoscopy. No further bleeding.
- No specimens collected.
Endoscopy results 12/06
The examined esophagus was normal.
The Z-line was variable and was found 40 cm from the incisors.
A 1 cm hiatal hernia was present.
No gross lesions were noted in the entire examined stomach.
Patchy moderately erythematous mucosa was found in the duodenal bulb.
One non-bleeding superficial duodenal ulcer with [employer] clip noted with
some oozing on touching with the endoscope was found in the second
portion of the duodenum. The oozing stopped at the end of the procedure.
--- NOTE | 2024-12-06 10:40 | W.PN.HOSP.TC ---
Today's Communication/Plan
-
hold off on metoprolol today. Will consider restarting it tomorrow as long as blood pressure remains stable
Clear liquids
Continue PPI
Transfer to telemetry
Encourage out of bed and ambulation with supervision
Assessment / Plan
Assessment / Plan
44-year-old man with melena and 1 episode of coffee-ground emesis
On examination awake alert
Denies any symptoms except feeling tired
Cardiovascular system S1-S2 appreciated
Chest CTA
Abdomen soft and nontender
Patient was seen earlier prior to EGD. Patient since then had EGD therefore documenting EGD findings also.
# Melena and 1 episode of coffee-ground emesis secondary to upper GI bleed
Hemodynamic instability on admission
Not on any anticoagulants as outpatient. On aspirin after mitral valve surgery
Acute blood loss anemia secondary to acute GI bleed
Patient has a history of duodenal surgery as a child-diagnosis unclear
EGD 12/02/2024-normal esophagus. Clotted blood in the gastric body. Widely patent duodenal enterostomy characterized by healthy-appearing mucosa. Blood in the duodenal bulb and second portion of the duodenum. Duodenal ulcer with a nonbleeding
visible vessel treated with bipolar cautery which became actively hemorrhaging ulcer. Spurting duodenal ulcer with visible blood vessel clip was placed with no further bleeding.
EGD 12/06/2024-normal esophagus. Z-line variable, at 40 cm from the incisors. 1 cm hiatal hernia. No gross lesions in the entire stomach. Erythematous duodenopathy. Nonbleeding duodenal ulcer with clip noted with some oozing on touching with
endoscopy
PPI drip to be continued twice daily, plan to advance to full liquid later today
Started on clears
Status post 1 unit of packed red blood cells on 12/04/2024.
Hemoglobin stable today.
# Pre-syncope likely secondary to upper GI bleed-stop IV fluids
# Hypotension-12/04/2024-unclear reason if secondary to GI bleed versus other. Patient is not symptomatic. Continue to hold metoprolol. Blood pressure improved.
# Aspiration pneumonia/pneumonitis-ceftriaxone started-continue for now total of 5 days.
# Fever-evening of 12/02/2024-likely postoperative fever. Treat aspiration pneumonia/pneumonitis with a short course of antibiotics
# Mitral valve repair on 05/12/[address] Bo
Echo 12/22/2023-normal LV size and systolic function. Mild concentric LVH. EF 55 to 60%. Normal diastolic function. Normal RV size and function. Status post mitral valve repair, trace MR
History of pleural effusion post valve repair requiring thoracentesis 850 mL of fluid evacuated on 05/26/23-no cytology available
Hold metoprolol
# Migraines and hydrocephalus-Topamax
# Anxiety-not on medicines
# History of cochlear implant on the right for hearing impairment. Deaf in the left ear
# Hemangioma of the left hepatic lobe
# DVT prophylaxis-SCDs
# Full code
Advised to ambulate and get out of bed and sit in the chair more time
Discussed with nursing at bedside
Discussed with GI
Anticipated Discharge: Within 24 hours
Subjective/Interval History
-
Date of Service: December 06, 2024
Objective Data
-
Labs:
Laboratory Results
12/06/24
04:20
WBC 9.1
Hgb 10.9 L
Hct 30.6 L
Plt Count 159 D
Vital Signs:
Vital Signs
Temp Pulse Resp BP Pulse Ox
97.8 F 74 99 97/66 100
12/06/24 10:15 12/06/24 10:15 12/06/24 10:15 12/06/24 10:15 12/06/24 06:00
I&O
12/05/24 12/06/24 12/07/24
06:59 06:59 06:59
Intake Total 2059 1680 / 1680
Output Total 3100 / 3100 1375 / 1375
Balance -1040 / -1040 305 / 305
--- NOTE | 2024-12-06 11:06 | PTCARENOTE ---
Addendum entered by Selam Schwab RN 12/06/24 11:08:
Currently Returned via stretcher/ tele, Ox3 no pain remains pale. BP 95/53 SR 80. Water provided- Pt updated on plan of care.
Original Note:
NPO , voided coil connector repairer sent to GI lab via w/c and telemetry by volunteer via visitor elevator.
[2024-12-06] MEDS: TOPAMAX 100 MG PO ×2 (13:07→19:58)
[2024-12-06] MEDS: CARAFATE SUSPENSION 1 GM PO ×2 (13:07→19:57)
[2024-12-06] MEDS: ROCEPHIN 1000 MG IV (13:07)
[2024-12-06] MEDS: STERILE WATER FOR INJECTION 10 ML IV (13:07)
[2024-12-06] MEDS: PROTONIX IV 40 MG IV ×2 (13:08→19:58)
[2024-12-06] MEDS: NSS (PRESERVATIVE FREE) 10 ML IV ×2 (13:08→19:57)
--- NOTE | 2024-12-06 13:19 | STATUS ---
SITUATION:
pt c/o blurriness right eye w white dot last 10-15 min now resolved
BACKGROUND:
s/p EGD - was given propaphol sedation. BP low side 90s/50s
hx head trauma/ deaf with cochlear implant right side
ASSESSMENT:
neuro check gcs 15 SANJU, NIH 0
RECOMMENDATION:
Dr. Willoughby notified and seen at bedside. Monitor for now.
--- NOTE | 2024-12-06 13:48 | W.PN.UPDATE ---
Update Note
Progress Note Update
Nursing notified that patient had an episode of blurry vision. Patient states that this is not new for him and he gets blurry vision. He also has a history of migraines and he takes Topamax. Patient was back to normal pressure was slightly on the
low side and patient also came back from anesthesia. Monitor for any changes.
--- NOTE | 2024-12-06 16:07 | PTCARENOTE ---
Report given to Traci- transfer to [id number] with tele.
--- NOTE | 2024-12-06 18:15 | CM ---
Patien with Dx UGI bleed. Clear liquids. Receiving IV Abx. Per nurse; ambulatory in room. Transfer from IMU to today.
CM continuing to follow.
No CM d/c planning needs identified.
Plan home.
[2024-12-07 03:14] VITALS: BP 104/63
[2024-12-07 06:05] LABS: Hematocrit 28.1 % (39.0-52.0); Hemoglobin 10.4 g/dL (13.0-18.0); Mean Corpuscular Hgb 32.3 pg (27.0-31.0); Mean Corpuscular Volume 87.3 fL (80.0-94.0); Mean Platelet Volume 9.8 fL (7.4-10.4); Platelet Count 180 10^3/uL (130-400); Red Blood Cell Count 3.22 10^6/uL (4.70-6.10); Red Cell Dist. Width 13.4 % (11.5-14.5); White Blood Cell Count 9.8 10^3/uL (4.8-10.8)
[2024-12-07 06:35] LABS: Blood Urea Nitrogen 10 mg/dl (9-20); Carbon Dioxide 16 mmol/L (22-30); Chloride 114 mmol/L (98-107); Estimated Creatinine Clearance 99 ml/min; Glucose 87 mg/dl (70-99); Potassium 3.5 mmol/L (3.5-5.1); Sodium 138 mmol/L (135-145); eGFR > 60.00
[2024-12-07 07:00] VITALS: BP 102/67
[2024-12-07] MEDS: CARAFATE SUSPENSION 1 GM PO ×2 (08:45→19:51)
[2024-12-07] MEDS: PROTONIX IV 40 MG IV ×2 (08:45→19:52)
[2024-12-07] MEDS: NSS (PRESERVATIVE FREE) 10 ML IV ×2 (08:46→19:52)
[2024-12-07] MEDS: FLUSH (NSS) 2 FLUSH IV ×2 (08:46→12:10)
[2024-12-07] MEDS: TOPAMAX 100 MG PO ×2 (08:46→19:52)
--- NOTE | 2024-12-07 09:27 | W.PN.GI.CBS2 ---
Today's Communication / Plan
-
Plan
- Protonix (pantoprazole) 40 mg PO BID.- Use sucralfate suspension 1 gram PO BID.
Will advance to low residue diet today.
Avoid NSAIDs.
Repeat upper endoscopy in 8 weeks to check healing. At that time,need to take biopsies in the stomach/duodenum for H.pylori bacteria.
Carafate can cause constipation, OK to use Miralax as needed if constipated. Okay to stop Carafate in 2 weeks. Need to space out this medication by at least 2 hours with the other medication as it decreases the absorption of the other
medicine .
Will set up for an appointment with our office in 6 weeks.
Discussed with patient to monitor for any black stool or maroon or red stool, call her office immediately if that were to happen.
Will give a dose of MiraLAX today.
Assessment / Plan
-
44-year-old male with past medical history of mitral valve repair on aspirin, prior duodenal surgery presenting with melena. Patient underwent endoscopy on 12/02 showing nonbleeding duodenal ulcer which became hemorrhagic after cautery and clip was
placed. 24 hours after the procedure patient was febrile and hypotensive with HB trending down, he was transferred to IMU, x-ray and obstruction studies noted likely has aspiration pneumonia secondary to cough. No overt bleed. Hemoglobin dropped
to 7.5 and 1 unit of PRBC transfused 12/04. Patient underwent repeat endoscopy on 12/06 revealed patchy moderately erythematous mucosa was found in the duodenal bulb, one nonbleeding superficial duodenal ulcer with a [employer] clip noted with some
oozing on touching with endoscope.
PLAN
Melena/UGIB with syncope in ER
Fever--improved/resolved
Hypotension ---improved/resolved
D/D : Suspect ulcer with ASA use vs H pylori infection
-s/p endoscopy showing non bleeding duodenal ulcer which became hemorrhagic after cautery---clip was placed, clotted blood in gastric body
- X-ray and obstruction studies noted likely has aspiration pneumonia secondary to cough. IV ceftriaxone was initiated
-Repeat hemoglobin today is 9.8 improved from 7.5 after one unit PRBC 12/04.
-Repeat endoscopy 12/06 revealed no rebleeding and patchy moderately erythematous mucosa was found in the duodenal bulb, and 1 nonbleeding superficial duodenal ulcer.
- Added Carafate 1 g PO twice daily. It can cause constipation, okay to use MiraLAX as needed.
- Clear liquid diet for now then transition to full liquid later in the day.
other med problems:
-anxiety
- deafness with cochlear implant
- hydrocephalus
-liver hemangioma
Endoscopy results 12/02/24
- Normal esophagus.
- Clotted blood in the gastric body.
- Widely patent duodenoenterostomy, characterized by
healthy appearing mucosa was found.
- Blood in the duodenal bulb and in the second portion
of the duodenum.
- Duodenal ulcer with a nonbleeding visible vessel
(Sunil Class IIa). Treated with bipolar cautery
which became actively hemorrhaging ulcer.
- Spurting duodenal ulcer with a visible vessel. Clip
(MR conditional) was placed. Clip ribbon inker: [employer]
Endoscopy. No further bleeding.
- No specimens collected.
Endoscopy results 12/06
The examined esophagus was normal.
The Z-line was variable and was found 40 cm from the incisors.
A 1 cm hiatal hernia was present.
No gross lesions were noted in the entire examined stomach.
Patchy moderately erythematous mucosa was found in the duodenal bulb.
One non-bleeding superficial duodenal ulcer with [employer] clip noted with
some oozing on touching with the endoscope was found in the second
portion of the duodenum. The oozing stopped at the end of the procedure.
Plan
- Protonix (pantoprazole) 40 mg PO BID.- Use sucralfate suspension 1 gram PO BID.
Will advance to low residue diet today.
Avoid NSAIDs.
Repeat upper endoscopy in 8 weeks to check healing. At that time,need to take biopsies in the stomach/duodenum for H.pylori bacteria.
Carafate can cause constipation, OK to use Miralax as needed if constipated. Okay to stop Carafate in 2 weeks. Need to space out this medication by at least 2 hours with the other medication as it decreases the absorption of the other
medicine .
Will set up for an appointment with our office in 6 weeks.
Discussed with patient to monitor for any black stool or maroon or red stool, call her office immediately if that were to happen.
Will give a dose of MiraLAX today.
Subjective
Subjective
Date of Service: December 07, 2024
Patient without any abdominal pain, nausea or vomiting. No bowel movements yet. Tolerating clear liquid diet.
Objective
Data Reviewed
Laboratory Data:
Laboratory Results
12/07/24 05:39
12/07/24 05:39
Laboratory Results
PT Cancelled 12/02/24 12:03
INR Cancelled 12/02/24 12:03
Total Bilirubin 0.5 mg/dl (0.2-1.3) 12/03/24 05:27
AST 17 U/L (17-59) 12/03/24 05:27
ALT 16 U/L (0-50) 12/03/24 05:27
Alkaline Phosphatase 46 U/L (38-126) 12/03/24 05:27
Vital Signs and I&O:
Vital Signs
Temp Pulse Resp BP Pulse Ox
98.3 F 89 18 102/67 98
12/07/24 07:00 12/07/24 07:00 12/07/24 07:00 12/07/24 07:00 12/07/24 07:00
I&O
12/06/24 12/07/24 12/08/24
06:59 06:59 06:59
Intake Total 1680 / 1680
Output Total 1375 / 1375
Balance 305 / 305
Physical Exam
Physical Exam
GI: Soft, Non Distended and Non Tender
[2024-12-07 11:20] VITALS: BP 101/67
--- NOTE | 2024-12-07 12:05 | PTCARENOTE ---
patient in bathroom getting washed at sink, upon walking back to bed heart rate elevated to 140's, patient assisted to bed, reporting feeling heart racing, and shortness of breath. within a minute heart rate returned to 90's and dyspnea improved.
plan of care on going.
[2024-12-07] MEDS: STERILE WATER FOR INJECTION 10 ML IV (12:10)
[2024-12-07] MEDS: ROCEPHIN 1000 MG IV (12:10)
[2024-12-07] MEDS: TOPROL XL 12.5 MG PO (12:43)
--- NOTE | 2024-12-07 13:53 | W.PN.HOSP.TC ---
Today's Communication/Plan
-
Restart BB
CXR
PO Bicarb
Possible discharge tomorrow if stable.
Assessment / Plan
Assessment / Plan
44-year-old man with melena and 1 episode of coffee-ground emesis
On examination awake alert
Denies any symptoms except feeling tired
Cardiovascular system S1-S2 appreciated
Chest CTA
Abdomen soft and nontender
Patient was seen earlier . Patient was washing up and ambulated and his heart rate went up and also he felt slightly short of breath.
# Melena and 1 episode of coffee-ground emesis secondary to upper GI bleed
Hemodynamic instability on admission
Not on any anticoagulants as outpatient. On aspirin after mitral valve surgery
Acute blood loss anemia secondary to acute GI bleed
Patient has a history of duodenal surgery as a child-diagnosis unclear
EGD 12/02/2024-normal esophagus. Clotted blood in the gastric body. Widely patent duodenal enterostomy characterized by healthy-appearing mucosa. Blood in the duodenal bulb and second portion of the duodenum. Duodenal ulcer with a nonbleeding
visible vessel treated with bipolar cautery which became actively hemorrhaging ulcer. Spurting duodenal ulcer with visible blood vessel clip was placed with no further bleeding.
EGD 12/06/2024-normal esophagus. Z-line variable, at 40 cm from the incisors. 1 cm hiatal hernia. No gross lesions in the entire stomach. Erythematous duodenopathy. Nonbleeding duodenal ulcer with clip noted with some oozing on touching with
endoscopy
PPI continued twice daily,
Plan LR diet today
Status post 1 unit of packed red blood cells on 12/04/2024.
Hemoglobin stable today.
# Pre-syncope likely secondary to upper GI bleed
# Tachycardia-his Lopressor has been on hold. Restarted
# Metabolic acidosis also. This could be hyperchloremic secondary to IV fluids. Will provide p.o. bicarb
# Hypotension-12/04/2024-unclear reason if secondary to GI bleed versus other. Patient is not symptomatic. Continue to hold metoprolol. Blood pressure improved.
# Aspiration pneumonia/pneumonitis-ceftriaxone started-continue for now total of 5 days.
# Fever-evening of 12/02/2024-likely postoperative fever. Treat aspiration pneumonia/pneumonitis with a short course of antibiotics
# Mitral valve repair on 05/12/[address] Bo
Echo 12/22/2023-normal LV size and systolic function. Mild concentric LVH. EF 55 to 60%. Normal diastolic function. Normal RV size and function. Status post mitral valve repair, trace MR
History of pleural effusion post valve repair requiring thoracentesis 850 mL of fluid evacuated on 05/26/23-no cytology available
Hold metoprolol
# Migraines and hydrocephalus-Topamax
# Anxiety-not on medicines
# History of cochlear implant on the right for hearing impairment. Deaf in the left ear
# Hemangioma of the left hepatic lobe
# DVT prophylaxis-SCDs
# Full code
Discussed with nursing at bedside
Anticipated Discharge: Within 24 hours
Subjective/Interval History
-
Date of Service: December 07, 2024
Objective Data
-
Labs:
Laboratory Results
12/07/24
05:39
WBC 9.8
Hgb 10.4 L
Hct 28.1 L
Plt Count 180
Sodium 138
Potassium 3.5
Chloride 114 H
Carbon Dioxide 16 L
BUN 10
Creatinine 0.9
Glucose 87
Calcium 8.0 L
Vital Signs:
Vital Signs
Temp Pulse Resp BP Pulse Ox
98.4 F 92 18 101/67 98
12/07/24 11:20 12/07/24 11:20 12/07/24 11:20 12/07/24 11:20 12/07/24 11:20
I&O
05/23/25 05/24/25 05/25/25
06:59 06:59 06:59
Intake Total 1680 / 1680
Output Total 1375 / 1375
Balance 305 / 305
[2024-12-07 15:44] VITALS: BP 100/62
[2024-12-07] MEDS: SODIUM BICARBONATE 650 MG PO ×2 (17:52→21:40)
[2024-12-07 19:46] VITALS: BP 99/67
[2024-12-07 23:33] VITALS: BP 92/59
[2024-12-08 03:55] VITALS: BP 97/66
[2024-12-08 06:18] LABS: Hematocrit 31.7 % (39.0-52.0); Hemoglobin 11.5 g/dL (13.0-18.0); Mean Corp Hgb Conc. 36.3 g/dL (33.0-37.0); Mean Corpuscular Volume 88.3 fL (80.0-94.0); Mean Platelet Volume 9.4 fL (7.4-10.4); Platelet Count 202 10^3/uL (130-400); Red Blood Cell Count 3.59 10^6/uL (4.70-6.10); Red Cell Dist. Width 13.8 % (11.5-14.5); White Blood Cell Count 13.6 10^3/uL (4.8-10.8)
[2024-12-08 06:53] LABS: Blood Urea Nitrogen 10 mg/dl (9-20); Calcium 8.4 mg/dl (8.4-10.2); Carbon Dioxide 19 mmol/L (22-30); Chloride 114 mmol/L (98-107); Estimated Creatinine Clearance 81 ml/min; Glucose 89 mg/dl (70-99); Potassium 3.8 mmol/L (3.5-5.1); Sodium 141 mmol/L (135-145); eGFR > 60.00
[2024-12-08 07:07] VITALS: BP 101/63
[2024-12-08] MEDS: CARAFATE SUSPENSION 1 GM PO ×2 (08:05→20:29)
[2024-12-08] MEDS: TOPAMAX 100 MG PO ×2 (08:06→20:30)
[2024-12-08] MEDS: PROTONIX IV 40 MG IV (08:06)
[2024-12-08] MEDS: SODIUM BICARBONATE 650 MG PO (08:06)
[2024-12-08] MEDS: NSS (PRESERVATIVE FREE) 10 ML IV (08:06)
[2024-12-08] MEDS: TOPROL XL 12.5 MG PO (08:06)
--- NOTE | 2024-12-08 10:07 | W.PN.GI.CBS2 ---
Today's Communication / Plan
-
Protonix (pantoprazole) 40 mg PO BID. Use sucralfate suspension 1 gram PO BID.
Tolerating low residue diet.
Avoid NSAIDs.
Repeat upper endoscopy in 8 weeks to check healing. At that time,need to take biopsies in the stomach/duodenum for H.pylori bacteria.
Carafate can cause constipation, OK to use Miralax as needed if constipated. Okay to stop Carafate in 2 weeks. Need to space out this medication by at least 2 hours with the other medication as it decreases the absorption of the other
medicine .
Sent message to my office to set up for an appointment with our office in 6 weeks.
Discussed with patient to monitor for any black stool or maroon or red stool, call her office immediately if that were to happen.
Okay to start aspirin but discussed with patient not to take aspirin in combination with NSAIDs for steroids as it increases risk of ulcer disease.
Will sign off, please call back if needed.
Assessment / Plan
-
44-year-old male with past medical history of mitral valve repair on aspirin, prior duodenal surgery presenting with melena. Patient underwent endoscopy on 12/02 showing nonbleeding duodenal ulcer which became hemorrhagic after cautery and clip was
placed. 24 hours after the procedure patient was febrile and hypotensive with HB trending down, he was transferred to IMU, x-ray and obstruction studies noted likely has aspiration pneumonia secondary to cough. No overt bleed. Hemoglobin dropped
to 7.5 and 1 unit of PRBC transfused 12/04. Patient underwent repeat endoscopy on 12/06 revealed patchy moderately erythematous mucosa was found in the duodenal bulb, one nonbleeding superficial duodenal ulcer with a [employer]ves[employer] clip noted with some
oozing on touching with endoscope.
PLAN
Melena/UGIB with syncope in ER
Fever--improved/resolved
Hypotension ---improved/resolved
D/D : Suspect ulcer with ASA use vs H pylori infection
-s/p endoscopy showing non bleeding duodenal ulcer which became hemorrhagic after cautery---clip was placed, clotted blood in gastric body
- X-ray and obstruction studies noted likely has aspiration pneumonia secondary to cough. IV ceftriaxone was initiated
-Repeat hemoglobin today is 9.8 improved from 7.5 after one unit PRBC 12/04.
-Repeat endoscopy 12/06 revealed no rebleeding and patchy moderately erythematous mucosa was found in the duodenal bulb, and 1 nonbleeding superficial duodenal ulcer.
- Added Carafate 1 g PO twice daily. It can cause constipation, okay to use MiraLAX as needed.
- Clear liquid diet for now then transition to full liquid later in the day.
other med problems:
-anxiety
- deafness with cochlear implant
- hydrocephalus
-liver hemangioma
Endoscopy results 12/02/24
- Normal esophagus.
- Clotted blood in the gastric body.
- Widely patent duodenoenterostomy, characterized by
healthy appearing mucosa was found.
- Blood in the duodenal bulb and in the second portion
of the duodenum.
- Duodenal ulcer with a nonbleeding visible vessel
(Sunil Class IIa). Treated with bipolar cautery
which became actively hemorrhaging ulcer.
- Spurting duodenal ulcer with a visible vessel. Clip
(MR conditional) was placed. 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
Endoscopy. No further bleeding.
- No specimens collected.
Endoscopy results 12/06
The examined esophagus was normal.
The Z-line was variable and was found 40 cm from the incisors.
A 1 cm hiatal hernia was present.
No gross lesions were noted in the entire examined stomach.
Patchy moderately erythematous mucosa was found in the duodenal bulb.
One non-bleeding superficial duodenal ulcer with O[employer] clip noted with
some oozing on touching with the endoscope was found in the second
portion of the duodenum. The oozing stopped at the end of the procedure.
Plan
- Protonix (pantoprazole) 40 mg PO BID. Use sucralfate suspension 1 gram PO BID.
Tolerating low residue diet.
Avoid NSAIDs.
Repeat upper endoscopy in 8 weeks to check healing. At that time,need to take biopsies in the stomach/duodenum for H.pylori bacteria.
Carafate can cause constipation, OK to use Miralax as needed if constipated. Okay to stop Carafate in 2 weeks. Need to space out this medication by at least 2 hours with the other medication as it decreases the absorption of the other
medicine .
Sent message to my office to set up for an appointment with our office in 6 weeks.
Discussed with patient to monitor for any black stool or maroon or red stool, call her office immediately if that were to happen.
Okay to start aspirin but discussed with patient not to take aspirin in combination with NSAIDs for steroids as it increases risk of ulcer disease.
Will sign off, please call back if needed.
Subjective
Subjective
Date of Service: December 08, 2024
Patient without any abdominal pain, nausea or vomiting. Had a formed dark to brown bowel movements today. Tolerating low residue diet. Hemoglobin stable, mild leukocytosis. No fevers or chills.
Objective
Data Reviewed
Laboratory Data:
Laboratory Results
12/08/24 05:59
12/08/24 05:59
Laboratory Results
PT Cancelled 12/02/24 12:03
INR Cancelled 12/02/24 12:03
Total Bilirubin 0.5 mg/dl (0.2-1.3) 12/03/24 05:27
AST 17 U/L (17-59) 12/03/24 05:27
ALT 16 U/L (0-50) 12/03/24 05:27
Alkaline Phosphatase 46 U/L (38-126) 12/03/24 05:27
Vital Signs and I&O:
Vital Signs
Temp Pulse Resp BP Pulse Ox
98.4 F 112 16 101/63 99
12/08/24 07:07 12/08/24 08:06 12/08/24 07:07 12/08/24 08:06 12/08/24 07:07
I&O
12/07/24 12/08/24 12/09/24
06:59 06:59 06:59
Intake Total 720 / 720 240 / 240
Balance 720 / 720 240 / 240
Physical Exam
Physical Exam
GI: Soft, Non Distended and Non Tender
[2024-12-08 11:19] LABS: Hematocrit 30.8 % (39.0-52.0); Hemoglobin 11.1 g/dL (13.0-18.0); Mean Corpuscular Hgb 31.9 pg (27.0-31.0); Mean Corpuscular Volume 88.5 fL (80.0-94.0); Mean Platelet Volume 9.3 fL (7.4-10.4); Platelet Count 207 10^3/uL (130-400); Red Blood Cell Count 3.48 10^6/uL (4.70-6.10); White Blood Cell Count 14.8 10^3/uL (4.8-10.8)
[2024-12-08 11:23] VITALS: BP 109/66
--- NOTE | 2024-12-08 11:54 | W.PN.HOSP.TC ---
Today's Communication/Plan
-
Check D-dimer
Restart aspirin
D-dimer is negative we will discharge the patient home
Assessment / Plan
Assessment / Plan
44-year-old man with melena and 1 episode of coffee-ground emesis
On examination awake alert
Denies any symptoms except feeling tired
Cardiovascular system S1-S2 appreciated
Chest CTA
Abdomen soft and nontender
# Melena and 1 episode of coffee-ground emesis secondary to upper GI bleed
Hemodynamic instability on admission
Not on any anticoagulants as outpatient. On aspirin after mitral valve surgery
Acute blood loss anemia secondary to acute GI bleed
Patient has a history of duodenal surgery as a child-diagnosis unclear
EGD 12/02/2024-normal esophagus. Clotted blood in the gastric body. Widely patent duodenal enterostomy characterized by healthy-appearing mucosa. Blood in the duodenal bulb and second portion of the duodenum. Duodenal ulcer with a nonbleeding
visible vessel treated with bipolar cautery which became actively hemorrhaging ulcer. Spurting duodenal ulcer with visible blood vessel clip was placed with no further bleeding.
EGD 12/06/2024-normal esophagus. Z-line variable, at 40 cm from the incisors. 1 cm hiatal hernia. No gross lesions in the entire stomach. Erythematous duodenopathy. Nonbleeding duodenal ulcer with clip noted with some oozing on touching with
endoscopy
PPI continued twice daily
Continue LR diet
Carafate started on Monday
Status post 1 unit of packed red blood cells on 12/04/2024.
Hemoglobin stable today.
Repeat CBC is white count and hemoglobin are all elevated
# Pre-syncope likely secondary to upper GI bleed
# Tachycardia Lopressor restarted. Check a D-dimer
# Metabolic acidosis also. This could be hyperchloremic secondary to IV fluids which he got when he was hypotensive. Better with p.o. bicarb
# Hypotension-12/04/2024-unclear reason if secondary to GI bleed versus other. Patient is not symptomatic.
# Aspiration pneumonia/pneumonitis-ceftriaxone started- Stop antibiotics after today
# Fever-evening of 12/02/2024-likely postoperative fever. Treat aspiration pneumonia/pneumonitis with a short course of antibiotics
# Mitral valve repair on 05/12/[address] Bo
Echo 12/22/2023-normal LV size and systolic function. Mild concentric LVH. EF 55 to 60%. Normal diastolic function. Normal RV size and function. Status post mitral valve repair, trace MR
History of pleural effusion post valve repair requiring thoracentesis 850 mL of fluid evacuated on 05/26/23-no cytology available
Metoprolol restarted
Restart aspirin. GI okay with that
# Migraines and hydrocephalus-Topamax
# Anxiety-not on medicines
# History of cochlear implant on the right for hearing impairment. Deaf in the left ear
# Hemangioma of the left hepatic lobe
# DVT prophylaxis-SCDs
# Full code
Discussed with nursing at bedside
Discussed with GI
Anticipated Discharge: Today
Subjective/Interval History
-
Date of Service: December 08, 2024
Objective Data
-
Labs:
Laboratory Results
12/08/24 12/08/24
05:59 11:05
WBC 13.6 H 14.8 H
Hgb 11.5 L 11.1 L
Hct 31.7 L 30.8 L
Plt Count 202 207
Sodium 141
Potassium 3.8
Chloride 114 H
Carbon Dioxide 19 L
BUN 10
Creatinine 1.1
Glucose 89
Calcium 8.4
Vital Signs:
Vital Signs
Temp Pulse Resp BP Pulse Ox
98.9 F 104 18 109/66 100
12/08/24 11:23 12/08/24 11:23 12/08/24 11:23 12/08/24 11:23 12/08/24 11:23
I&O
12/07/24 12/08/24 12/09/24
06:59 06:59 06:59
Intake Total 720 / 720 240 / 240
Balance 720 / 720 240 / 240
[2024-12-08] MEDS: STERILE WATER FOR INJECTION 10 ML IV (12:07)
[2024-12-08] MEDS: ROCEPHIN 1000 MG IV (12:07)
[2024-12-08] MEDS: LOW STRENGTH ASPIRIN 81 MG PO (12:07)
[2024-12-08 12:19] LABS: D-Dimer 2.54 ug/mlFEU (0.00-0.50)
--- NOTE | 2024-12-08 12:30 | PTCARENOTE ---
Dr. Willoughby made aware of pt. ddimer results. New order to follow.
[2024-12-08 15:28] VITALS: BP 102/65
--- NOTE | 2024-12-08 15:37 | CON.PUL ---
Consultation
Consultation Request
Date/Time Consultation Requested: 12/08/2024
Date/Time Consultation Performed: 12/08/2024
Requesting Provider: Danae Willoughby
Performing Provider: Jenn Culp
Reason for Consultation: PE
Medical History
-
Chief Complaint: GI bleed
History of Present Illness:
Patient is a very pleasant 44-year-old gentleman who presented to the hospital about 6 days ago on 12/02 with multiple episodes of melanotic stool. Patient also had dark-colored vomiting coffee-ground. And reportedly was having abdominal pain for
about a week with a presyncopal event in the waiting room. Patient has history of mitral valve repair in 2022 and has been on an aspirin since. Patient was evaluated by GI service during this admission.
12/02 EGD: Reported clotted blood in gastric body, blood in duodenal bulb and second portion of the duodenum. Duodenal ulcer with a nonbleeding visible vessel treated with by polar cautery which became actively hemorrhagic ulcer, clip was placed.
Over next few days, hemoglobin however started to drift down and patient was taken to endoscopy for a repeat EGD.
12/06 EGD: Erythematous duodenopathy noted without any gross lesion entire stomach. Nonbleeding duodenal ulcer with clip noted with some oozing on touching with the endoscopy.
Patient has since been on Protonix twice a day as well as sucralfate suspension 1 g p.o. twice daily.
Patient developed a low-grade fever which was felt to be related to possible aspiration pneumonitis and he was treated with ceftriaxone. Additional workup included an elevated D-dimer which was followed by a CT PE protocol today, which was
suggestive of bilateral pulmonary embolism without right heart strain. Pulmonary service was consulted for further input.
Past Medical History: Reports Psychiatric (Anxiety) and Other
Additional Past Medical History:
Headaches, deafness in left ear, mitral valve disorder, hydrocephalus, migraines
Past Surgical History: Reports Other
Additional Past Surgical History:
Cochlear implant, hernia repair, mitral valve repair, duodenal surgery as a child
Social History
Tobacco: Non-smoker
Alcohol: None
Drug: None
Personal: Single
Living: With Family
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
Family History
Family History: Cancer ( ovarian cancer mother bladder cancer father,)
Allergies / Home Medications
Allergies
Allergy/AdvReac Type Severity Reaction Status Date / Time
citalopram [From Celexa] Allergy Unknown Verified 12/02/24 09:43
erythromycin base Allergy Exacerbates Verified 12/02/24 09:43
Hearing
Loss
Home Medications
�Medication �Instructions �Recorded �Confirmed �Last Taken �Type
acetaminophen 500 mg tablet 500 mg PO Q6HPRN PRN MILD PAIN 12/19/19 12/02/24 05/05/23 08:00 History
(Tylenol Extra Strength)
multivitamin 1 tab PO DAILY Supplement 04/07/23 12/02/24 12/01/24 History
aspirin 81 mg chewable tablet 81 mg PO DAILY Blood clot 05/16/23 12/02/24 12/01/24 Rx
prevention/tx #0 tabs
metoprolol succinate 25 mg 12.5 mg (1/2 x 25 mg) PO DAILY 12/08/24 12/02/24 12/01/24 Rx
tablet,extended release 24 hr Heart disease/condition #30 tabs
(Toprol XL)
pantoprazole 40 mg tablet,delayed 40 mg PO BID Gastrointestinal 12/08/24 Unknown Rx
release issue #60 tabs
sucralfate 100 mg/mL oral 1 g (10 mL) PO BID 12/08/24 Unknown Rx
suspension Gastrointestinal issue #473 mL
topiramate 100 mg tablet 100 mg PO BID migraines #0 tabs 12/08/24 12/02/24 12/01/24 Rx
Review of Systems
-
Hematologic/Lymphatic: Other (All 14 systems reviewed and negative except as stated above in the history of present illness. Patient is frustrated over having been in the hospital for close to a week.)
Vitals / Labs / Diagnostic Testing
Vital Signs
Temp Pulse Resp BP Pulse Ox
98.1 F 96 16 102/65 100
12/08/24 15:28 12/08/24 15:28 12/08/24 15:28 12/08/24 15:28 12/08/24 15:28
Lab Data
12/08/24 11:05
12/08/24 05:59
Microbiology
12/04/24 09:31 Blood/Venous Blood Culture - Preliminary
No Growth in 4 days- Final report to follow
12/04/24 08:50 Blood/Venous Blood Culture - Preliminary
No Growth in 4 days- Final report to follow
Diagnostic Testing:
Physical Exam
-
HEENT: Other (Pale conjunctiva)
Cardiovascular: S1/S2
Respiratory: Clear and Non-Labored Respirations
GI: Soft and Non Distended
Neurology: Awake, Alert and Oriented
Skin: Warm
General: Comfortable
Assessment
-
#1. Acute PE, bilateral. Patient is hemodynamically stable, not requiring any pressors. Saturating well on room air. Lower extremity exam is unremarkable, no calf tenderness or swelling noted.
- Suspect provoked pulmonary embolism in the setting of hospitalization since 12/02. No prior history of VTE, no family history of PE.
- Recommend heparin drip with close monitoring of hemoglobin if cleared by gastroenterology service for anticoagulation. Patient at risk of GI bleed with anticoagulation.
- If unable to anticoagulate with heparin, would recommend IR consult for temporary IVC filter placement
- Discontinue aspirin while patient is anticoagulated to decrease risk of bleeding
- Patient will need minimum 3 months of anticoagulation
- Will arrange outpatient follow-up with pulmonary clinic
- Check 2D echocardiogram for further evaluation
#2. Acute blood loss anemia with duodenal ulcer.
- Patient has recent diagnosis of duodenal ulcer s/p EGD x 2
- Most recent endoscopy did not show active bleeding
- Patient has been on pantoprazole as well as sucralfate, to be continued
- Monitor hematocrit closely while starting anticoagulation
Other medical diagnoses:
- Aspiration Pneumonitis. CT unremarkable for any consolidation. No further need for antibiotics
- S/p mitral valve repair 2022. No signs symptom of heart failure. Follow-up echocardiogram
Total time spent on this consultation/encounter __65__ minutes which includes review of history, physical exam, medications, laboratory data, personal review of imaging, extensive review of outpatient records, discussion with care team and
respiratory therapy.
Data:
CT Chest 11/2024: Examination is positive for bilateral pulmonary embolism.
No evidence for significant right heart strain by CT.
CXR 11/2024: Unremarkable
ECHO 12/2023: 1. Normal left ventricular size and systolic function with mild concentric
left ventricular hypertrophy without regional wall motion abnormalities.
Estimated left nuclear ejection fraction is 55 to 60% by Warner's method.
Normal diastolic function.
2. Normal right ventricular size and systolic function.
3. Status post mitral valve repair with new cords to A2 and a size 32
Annuloplasty ring. Peak and mean transmitral gradients are 3 and 2 mmHg,
respectively with trace mitral regurgitation.
4. No other significant valvular abnormalities.
5. No pericardial effusion.
6. Dilated coronary sinus is noted.
LHC 04/2023: 1. No obstructive coronary artery disease. Mid LAD myocardial bridge is noted.
2. Mildly elevated LVEDP
ECHO 03/2023: Normal left ventricular size, thickness, and systolic function. Left
ventricular ejection fraction is 60-65%.
Normal right ventricular size and function.
Moderately dilated left atrium.
Thickened mitral valve leaflets. There is severe prolapse of the anterior
leaflet at A2 with a torn cord and possible partial flail leaflet. There is an
eccentric jet of severe mitral regurgitation present. Peak E wave velocity 110
cm/s.
Mild tricuspid regurgitation.
--- NOTE | 2024-12-08 15:59 | W.PN.UPDATE ---
Update Note
Progress Note Update
Bilateral PE. No RV strain per CAT scan
Ultrasound of the lower extremity and echo ordered
Nursing now reports that patient has been refusing to wear SCDs
This is provoked be secondary to hospitalization
Made patient aware about the diagnosis and treatment plan with heparin and bleeding risks
Discussed with GI okay to start heparin drip
Discussed with pulmonary-consult requested
Father updated.
time spent over [address] reviewed by me
[2024-12-08 16:42] LABS: APTT 30.8 Sec (23.4-35.0)
[2024-12-08] MEDS: HEPARIN 5200 UNITS IV (16:51)
[2024-12-08] MEDS: HEPARIN 25000 UNITS/250 ML IV (16:55)
[2024-12-08 17:17] LABS: Hematocrit 30.7 % (39.0-52.0); Hemoglobin 11.3 g/dL (13.0-18.0); Mean Corp Hgb Conc. 36.8 g/dL (33.0-37.0); Mean Corpuscular Hgb 32.2 pg (27.0-31.0); Mean Corpuscular Volume 87.5 fL (80.0-94.0); Mean Platelet Volume 9.3 fL (7.4-10.4); Platelet Count 202 10^3/uL (130-400); Red Blood Cell Count 3.51 10^6/uL (4.70-6.10); Red Cell Dist. Width 14.1 % (11.5-14.5); White Blood Cell Count 13.6 10^3/uL (4.8-10.8)
--- NOTE | 2024-12-08 18:40 | PTCARENOTE ---
Dr. Willoughby made aware of peripheral US results. Pt. currently receiving Heparin infusion.
[2024-12-08 19:43] VITALS: BP 100/65
[2024-12-08] MEDS: COLACE PO ×2 (20:29→20:41)
[2024-12-08] MEDS: PROTONIX 40 MG PO (20:30)
[2024-12-08 23:15] VITALS: BP 95/63
[2024-12-08 23:21] LABS: Hematocrit 28.9 % (39.0-52.0); Hemoglobin 10.3 g/dL (13.0-18.0)
[2024-12-08 23:35] LABS: APTT 85.6 Sec (23.4-35.0)
--- NOTE | 2024-12-09 00:45 | PTCARENOTE ---
2300 HH reported to [facility]. No new orders @ this time.
[2024-12-09 03:20] VITALS: BP 93/68
[2024-12-09 06:41] LABS: APTT 179.1 Sec (23.4-35.0)
[2024-12-09 07:27] VITALS: BP 97/59
[2024-12-09] MEDS: TOPROL XL PO (08:44)
[2024-12-09] MEDS: COLACE PO (08:44)
[2024-12-09] MEDS: CARAFATE SUSPENSION 1 GM PO (08:44)
[2024-12-09] MEDS: PROTONIX 40 MG PO (08:45)
[2024-12-09] MEDS: FLUSH (NSS) 1 FLUSH IV (08:45)
[2024-12-09] MEDS: TOPAMAX 100 MG PO (08:45)
[2024-12-09] MEDS: COLACE 100 MG PO (08:53)
--- NOTE | 2024-12-09 11:16 | PTCARENOTE ---
patient reporting tingling and mild pain in left arm, denies sensation change when compared to right arm. able to move arm freely, good strength. vitals noted. Dr Taylor aware. plan of care on going.
[2024-12-09 11:18] VITALS: BP 111/74
--- NOTE | 2024-12-09 11:57 | W.PN.HOSP.TC ---
Addendum entered and electronically signed by Lopez Taylor DO 12/10/24 12:45:
Nonocclusive thrombus within the distal left femoral vein noted on ultrasound.
Original Note:
Today's Communication/Plan
-
Transition to Eliquis
Ambulatory pulse ox on room air
Discharge
Assessment / Plan
Assessment / Plan
Gen-AAOx3, NAD
HEENT-NC, AT, anicteric, clear oral mm
Neck-supple
CV-reg, no M, +S1/S2
Lungs-clear B/L
Abd-soft, NT, ND
Ext-no edema
Musculoskeletal-no cyanosis, clubbing
Skin-warm and dry
Neuro-grossly non-focal
Psych-calm, cooperative
Acute upper GI bleed -found to have duodenal ulcer on EGD December 02 with with finding of nonbleeding visible vessel. Treated with bipolar cautery, subsequent spurting duodenal ulcer with visible vessel treated with clip. No further bleeding.
Repeat EGD December 06 showed nonbleeding duodenal ulcer with clip noted and some oozing and touching with the endoscope. Recommendation for repeat endoscopy in 8 weeks. Avoid NSAIDs.
Acute blood loss anemia - secondary to acute GI bleed
Patient has a history of duodenal surgery as a child-diagnosis unclear
EGD 12/02/2024-normal esophagus. Clotted blood in the gastric body. Widely patent duodenal enterostomy characterized by healthy-appearing mucosa. Blood in the duodenal bulb and second portion of the duodenum. Duodenal ulcer with a nonbleeding
visible vessel treated with bipolar cautery which became actively hemorrhaging ulcer. Spurting duodenal ulcer with visible blood vessel clip was placed with no further bleeding.
EGD 12/06/2024-normal esophagus. Z-line variable, at 40 cm from the incisors. 1 cm hiatal hernia. No gross lesions in the entire stomach. Erythematous duodenopathy. Nonbleeding duodenal ulcer with clip noted with some oozing on touching with
endoscopy
PPI continued twice daily
Continue LR diet
Carafate started on Monday
Status post 1 unit of packed red blood cells on 12/04/2024.
Hemoglobin stable today.
Repeat CBC is white count and hemoglobin are all elevated
Bilateral acute pulmonary emboli -noted on CT. No heart strain. Hemodynamically stable. Transition from heparin IV to Eliquis this evening, continue Eliquis for 3 months on discharge. Follow-up as outpatient.
Pre-syncope likely secondary to upper GI bleed
Metabolic acidosis also. This could be hyperchloremic secondary to IV fluids which he got when he was hypotensive. Better with p.o. bicarb
Hypotension-12/04/2024-unclear reason if secondary to GI bleed versus other. Patient is not symptomatic.
Aspiration pneumonia/pneumonitis -treated with 5-day course of ceftriaxone.
Mitral valve repair on 05/12/[address] Bo
Echo 12/22/2023-normal LV size and systolic function. Mild concentric LVH. EF 55 to 60%. Normal diastolic function. Normal RV size and function. Status post mitral valve repair, trace MR
History of pleural effusion post valve repair requiring thoracentesis 850 mL of fluid evacuated on 05/26/23-no cytology available
Metoprolol restarted
No aspirin on discharge given need for OAC. Discussed with patient.
Migraines and hydrocephalus-Topamax
Anxiety-not on medicines
History of cochlear implant on the right for hearing impairment. Deaf in the left ear
Hemangioma of the left hepatic lobe
DVT prophylaxis-SCDs
Full code
Dispo -anticipate discharge home later today. Check ambulatory pulse ox on room air prior to discharge. Can check outpatient Echo.
Discussed with RN, pulmonary.
32 min spent in discharge process.
Anticipated Discharge: Today
Subjective/Interval History
-
Date of Service: December 09, 2024
Patient seen and examined. Mild dyspnea on exertion.
Objective Data
-
Labs:
Laboratory Results
12/09/24 12/09/24
05:40 13:45
APTT 179.1 H* Pending
Vital Signs:
Vital Signs
Temp Pulse Resp BP Pulse Ox
97.8 F 109 16 111/74 99
12/09/24 11:18 12/09/24 11:18 12/09/24 11:18 12/09/24 11:18 12/09/24 11:18
I&O
12/08/24 12/09/24 12/10/24
06:59 06:59 06:59
Intake Total 720 / 720 720 / 720 480 / 480
Balance 720 / 720 720 / 720 480 / 480
Review of Systems
-
History Source: Patient
All other systems: Reviewed and negative
--- NOTE | 2024-12-09 12:11 | W.PN.PUL3 ---
Today's Communication / Plan
-
- Agree with transition to Po Eliquis
- Out patient follow up with Pulmonary clinic in 6 weeks time
- Needs Min 3 months of anticoagulation
- Discharge planning
- Pulmonary team will sign off, please call as needed.
Assessment
-
Patient is a very pleasant 44-year-old gentleman who presented to the hospital about 6 days ago on 12/02 with multiple episodes of melanotic stool. Patient also had dark-colored vomiting coffee-ground. And reportedly was having abdominal pain for
about a week with a presyncopal event in the waiting room. Patient has history of mitral valve repair in 2022 and has been on an aspirin since. Patient was evaluated by GI service during this admission.
12/02 EGD: Reported clotted blood in gastric body, blood in duodenal bulb and second portion of the duodenum. Duodenal ulcer with a nonbleeding visible vessel treated with by polar cautery which became actively hemorrhagic ulcer, clip was placed.
Over next few days, hemoglobin however started to drift down and patient was taken to endoscopy for a repeat EGD.
12/06 EGD: Erythematous duodenopathy noted without any gross lesion entire stomach. Nonbleeding duodenal ulcer with clip noted with some oozing on touching with the endoscopy.
Patient has since been on Protonix twice a day as well as sucralfate suspension 1 g p.o. twice daily.
Patient developed a low-grade fever which was felt to be related to possible aspiration pneumonitis and he was treated with ceftriaxone. Additional workup included an elevated D-dimer which was followed by a CT PE protocol today, which was
suggestive of bilateral pulmonary embolism without right heart strain. Pulmonary service was consulted for further input.
#1. Acute PE, bilateral. Patient is hemodynamically stable, not requiring any pressors. Saturating well on room air. Lower extremity exam is unremarkable, no calf tenderness or swelling noted.
- Suspect provoked pulmonary embolism in the setting of hospitalization since 12/02. No prior history of VTE, no family history of PE.
- Tolerating heparin infusion well, transition to PO Eliquis
- Non occlusive left femoral vein DVT
#2. Acute blood loss anemia with duodenal ulcer.
- Patient has recent diagnosis of duodenal ulcer s/p EGD x 2
- Most recent endoscopy did not show active bleeding
- Patient has been on pantoprazole as well as sucralfate, to be continued
- Stable H/H on Heparin
Other medical diagnoses:
- Aspiration Pneumonitis. CT unremarkable for any consolidation. No further need for antibiotics
- S/p mitral valve repair 2022. No signs symptom of heart failure. Follow-up echocardiogram
Total time spent on this consultation/encounter __42__ minutes which includes review of history, physical exam, medications, laboratory data, personal review of imaging, extensive review of outpatient records, discussion with care team and
respiratory therapy.
d/w primary team
Data:
CT Chest 11/2024: Examination is positive for bilateral pulmonary embolism.
No evidence for significant right heart strain by CT.
CXR 11/2024: Unremarkable
ECHO 12/2023: 1. Normal left ventricular size and systolic function with mild concentric
left ventricular hypertrophy without regional wall motion abnormalities.
Estimated left nuclear ejection fraction is 55 to 60% by Warner's method.
Normal diastolic function.
2. Normal right ventricular size and systolic function.
3. Status post mitral valve repair with new cords to A2 and a size 32
Annuloplasty ring. Peak and mean transmitral gradients are 3 and 2 mmHg,
respectively with trace mitral regurgitation.
4. No other significant valvular abnormalities.
5. No pericardial effusion.
6. Dilated coronary sinus is noted.
LHC 04/2023: 1. No obstructive coronary artery disease. Mid LAD myocardial bridge is noted.
2. Mildly elevated LVEDP
ECHO 03/2023: Normal left ventricular size, thickness, and systolic function. Left
ventricular ejection fraction is 60-65%.
Normal right ventricular size and function.
Moderately dilated left atrium.
Thickened mitral valve leaflets. There is severe prolapse of the anterior
leaflet at A2 with a torn cord and possible partial flail leaflet. There is an
eccentric jet of severe mitral regurgitation present. Peak E wave velocity 110
cm/s.
Mild tricuspid regurgitation.
Subjective Data
-
Date of Service:
Date of Service: December 09, 2024
Subjective:
Comfortably sitting in bed, no distress.
Review of Systems
Genitourinary: Other (No new symptoms reported)
Objective Data
Data Reviewed
Vital Signs / I&O / Oxygen:
Vital Signs
Temp Pulse Resp BP Pulse Ox
97.8 F 109 16 111/74 99
12/09/24 11:18 12/09/24 11:18 12/09/24 11:18 12/09/24 11:18 12/09/24 11:18
Intake and Output
12/08/24 12/09/24 12/10/24
06:59 06:59 06:59
Intake Total 720 / 720 720 / 720 480 / 480
Balance 720 / 720 720 / 720 480 / 480
SaO2 99
Physical Exam
General: Comfortable
HEENT: Normocephalic and Other (Pale conjunctiva )
Cardiovascular: S1-S2
Respiratory: Clear
GI: Soft and Non Distended
Neurology: Awake and Alert
Labs/Micro/Reports
Lab Data
12/08/24 23:02
12/08/24 05:59
Laboratory Results
12/08/24 12/08/24 12/08/24
16:12 22:55 23:02
APTT 30.8 Cancelled 85.6 H
12/09/24
05:40
APTT 179.1 H*
Microbiology
12/04/24 09:31 Blood/Venous Blood Culture - Final
No Growth - Final Report
12/04/24 08:50 Blood/Venous Blood Culture - Final
No Growth - Final Report
--- NOTE | 2024-12-09 12:12 | W.DS.TRANS ---
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
-
Discharge Instructions:
Discharge Diagnosis/Procedures Upper GI bleed
Duodenal ulcer
Aspiration pneumonia/pneumonitis
Bilateral pulmonary emboli
Mitral valve repair
Migraines
Diet Low Residue
Activity As tolerated
Driving Restrictions As prior to admission
Instructions:
Stand-Alone Forms:
Changes to Home Medications: No
Discharge Medications:
DC Medications w/original date entered in [employer]
acetaminophen 500 mg tablet (Tylenol Extra Strength) 500 mg PO Q6HPRN PRN MILD PAIN 12/19/19
multivitamin 1 tab PO DAILY Supplement 04/07/23
aspirin 81 mg chewable tablet 81 mg PO DAILY Blood clot prevention/tx #0 tabs 05/16/23
metoprolol succinate 25 mg tablet,extended release 24 hr (Toprol XL) 12.5 mg (1/2 x 25 mg) PO DAILY Heart disease/condition #30 tabs 12/08/24
pantoprazole 40 mg tablet,delayed release 40 mg PO BID Gastrointestinal issue #60 tabs 12/08/24
topiramate 100 mg tablet 100 mg PO BID migraines #0 tabs 12/08/24
apixaban 5 mg (74 tabs) tablets in a dose pack See Rx Instructions PO .COMPLEX #74 ea 12/09/24
metoprolol succinate 25 mg tablet,extended release 24 hr 12.5 mg (1/2 x 25 mg) PO DAILY #0 tabs 12/09/24
sucralfate 1 gram tablet 1 g PO BID #28 tabs 12/09/24
Home Medication Changes
Pending Results: No
[2024-12-09] MEDS: TOPROL XL 12.5 MG PO (12:34)
--- NOTE | 2024-12-09 12:43 | CM ---
Chart reviewed and patient is for discharge to home today, no needs.
Plan; Home with family.
[2024-12-09 13:55] LABS: APTT 103.8 Sec (23.4-35.0)
[2024-12-09 15:00] VITALS: BP 98/65
--- NOTE | 2024-12-09 17:00 | W.DS.TRANS ---
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
-
Discharge Instructions:
Discharge Diagnosis/Procedures Upper GI bleed
Duodenal ulcer
Aspiration pneumonia/pneumonitis
Bilateral pulmonary emboli
Mitral valve repair
Migraines
Diet Low Residue
Activity As tolerated
Driving Restrictions As prior to admission
Instructions:
Stand-Alone Forms:
Changes to Home Medications: Yes
Discharge Medications:
DC Medications w/original date entered in [employer]
acetaminophen 500 mg tablet (Tylenol Extra Strength) 500 mg PO Q6HPRN PRN MILD PAIN 12/19/19
multivitamin 1 tab PO DAILY Supplement 04/07/23
metoprolol succinate 25 mg tablet,extended release 24 hr (Toprol XL) 12.5 mg (1/2 x 25 mg) PO DAILY Heart disease/condition #30 tabs 12/08/24
pantoprazole 40 mg tablet,delayed release 40 mg PO BID Gastrointestinal issue #60 tabs 12/08/24
topiramate 100 mg tablet 100 mg PO BID migraines #0 tabs 12/08/24
apixaban 5 mg (74 tabs) tablets in a dose pack See Rx Instructions PO .COMPLEX #74 ea 12/09/24
metoprolol succinate 25 mg tablet,extended release 24 hr 12.5 mg (1/2 x 25 mg) PO DAILY #0 tabs 12/09/24
sucralfate 1 gram tablet 1 g PO BID #28 tabs 12/09/24
Home Medication Changes
Stop aspirin.
Pending Results: No
[2024-12-09] MEDS: ELIQUIS 10 MG PO (17:08)
--- NOTE | 2024-12-10 07:51 | PN.CDI ---
CDI
- -
CDI:
Physician Documentation Request
Admit Date: 12/02/24 12:18
Dear Doctor,
Please review the following and provide your response in the progress notes.
Clinical Indicators:
The diagnosis of Nonocclusive thrombus within the distal left femoral vein was included in the signed Ultrasound Venous bilateral extremities on 12/08/24
Additional clinical indicators in the chart include:
Pt admitted with GI bleed.
12/09 Progress note: 'Bilateral acute pulmonary emboli -noted on CT. No heart strain. Hemodynamically stable.'
Please indicate in your progress notes if you are in agreement that the above diagnosis is valid for this patient:
Nonocclusive thrombus within the distal left femoral vein is a valid diagnosis (Please include it in your progress notes)
Nonocclusive thrombus within the distal left femoral vein is not a valid diagnosis for this patient
Other
Use of terms such as suspected, likely, concern for, or probable are acceptable for a diagnosis that is being evaluated, monitored or treated as if it exists and can be coded in the inpatient setting, when documented at the time of discharge.
Thank you,
Mignon Pena RN, BSN
CDI Specialist
[place] [facility]
Please use your independent medical judgment in providing your response.
== END 2024-12-09 18:14 | disposition home or self-care (01) | DRG 377 ==
LOC: 4 EAST ACU 12:18
PROVIDERS: Internal Medicine Gastroenterology; Nurse Practitioner Family; Physician Assistant; ADMITTING PHYSICIAN Hospitalist; ATTENDING PHYSICIAN Hospitalist; CONSULT PHYSICIAN Internal Medicine; CONSULT PHYSICIAN Internal Medicine Gastroenterology; EMERGENCY PHYSICIAN Emergency Medicine; FAMILY PHYSICIAN Physician Assistant Medical
PROC: 0W3P8ZZ Control Bleeding in Gastrointestinal Tract, Via Natural or Artificial Opening Endoscopic (ICD-10-PCS; 2024-12-02)
PROC: 30233N1 Transfusion of Nonautologous Red Blood Cells into Peripheral Vein, Percutaneous Approach (ICD-10-PCS; 2024-12-04)
PROC: 0DJ08ZZ Inspection of Upper Intestinal Tract, Via Natural or Artificial Opening Endoscopic (ICD-10-PCS; 2024-12-06)
DX: K26.0 Acute duodenal ulcer with hemorrhage (principal); I26.99 Other pulmonary embolism without acute cor pulmonale; J69.0 Pneumonitis due to inhalation of food and vomit; J98.11 Atelectasis; D62 Acute posthemorrhagic anemia; I82.412 Acute embolism and thrombosis of left femoral vein; E87.20 Acidosis, unspecified; R57.9 Shock, unspecified; G91.9 Hydrocephalus, unspecified; F41.9 Anxiety disorder, unspecified; I95.9 Hypotension, unspecified; G43.909 Migraine, unspecified, not intractable, without status migrainosus; D18.03 Hemangioma of intra-abdominal structures; K21.9 Gastro-esophageal reflux disease without esophagitis; K31.89 Other diseases of stomach and duodenum; K44.9 Diaphragmatic hernia without obstruction or gangrene; K22.89 Other specified disease of esophagus; H91.92 Unspecified hearing loss, left ear; Z96.21 Cochlear implant status; Z98.0 Intestinal bypass and anastomosis status; Z79.82 Long term (current) use of aspirin
CPT/HCPCS: 71046; 71275; 74022; 80048; 80053; 81003; 82306; 82533; 82607; 82728; 83540; 83550; 83605; 84443; 85014; 85018; 85025; 85027; 85379; 85610; 85730; 86850; 86900; 86901; 86920; 87040; 93005; 93970; 96361; 96374; 99285; P9016; Q9967

== ENCOUNTER 2024-12-27 14:03 | Emergency (ER) | payer OTHER, SELFPAY ==
[2024-12-27 14:04] VITALS: BP 108/72
[2024-12-27 14:38] LABS: % Basophils 1.1 % (0-2); % Eosinophils 0.9 % (0-6); % Immature Granulocytes 0.2 % (0-0.5); % Lymphocytes 29.6 % (20.5-51.1); % Monocytes 6.1 % (1.7-9.3); % Neutrophils 62.1 % (42.2-75.2); Absolute Basophils 0.1 10^3/uL (0-0.2); Absolute Eosinophils 0.1 10^3/uL (0-0.7); Absolute Lymphocytes 1.6 10^3/uL (1.2-3.4); Absolute Monocytes 0.3 10^3/uL (0.1-0.6); Absolute Neutrophils 3.3 10^3/uL (1.4-6.5); Hematocrit 34.6 % (39.0-52.0); Hemoglobin 11.5 g/dL (13.0-18.0); Mean Corp Hgb Conc. 33.2 g/dL (33.0-37.0); Mean Corpuscular Hgb 29.6 pg (27.0-31.0); Mean Corpuscular Volume 88.9 fL (80.0-94.0); Mean Platelet Volume 9.9 fL (7.4-10.4); Nucleated Red Blood Cells % 0 % (-); Platelet Count 243 10^3/uL (130-400); Red Blood Cell Count 3.89 10^6/uL (4.70-6.10); Red Cell Dist. Width 13.4 % (11.5-14.5); White Blood Cell Count 5.3 10^3/uL (4.8-10.8)
[2024-12-27 14:49] LABS: ALT (SGPT) 11 U/L (0-50); AST (SGOT) 15 U/L (17-59); Albumin 4.2 g/dl (3.5-5.0); Alkaline Phosphatase 44 U/L (38-126); Blood Urea Nitrogen 17 mg/dl (9-20); Carbon Dioxide 21 mmol/L (22-30); Chloride 113 mmol/L (98-107); Glucose 120 mg/dl (70-99); Potassium 4.3 mmol/L (3.5-5.1); Sodium 142 mmol/L (135-145); Total Bilirubin 0.5 mg/dl (0.2-1.3); Total Protein 6.4 g/dl (6.3-8.2); eGFR > 60.00
[2024-12-27 15:34] VITALS: BP 101/76
[2024-12-27 16:00] VITALS: BP 93/65
[2024-12-27 18:31] VITALS: BP 100/63
--- NOTE | 2024-12-27 18:46 | ED.GENMED ---
History of Present Illness
General
Chief Complaint: Dizziness
Time Seen by Provider: 12/27/24 15:19
History of Present Illness
History of Present Illness:
Note:
CHIEF COMPLAINT(S)
Extreme dizziness, blurred vision, and a strange feeling in the head.
HISTORY OF PRESENT ILLNESS
The patient is a 47-year-old male presenting with a brief episode of extreme dizziness and blurred vision. The patient describes experiencing a 'weird feeling' in the head. These symptoms started after the patient had been discharged from a prior
hospital admission. Upon further inquiry, the patient reports feeling as though they might fall if they get up too quickly, a sensation that has persisted since discharge.
The patient denies any current chest pain or difficulty breathing. The episode of dizziness lasted approximately 45 minutes and resolved upon arrival
PHYSICAL EXAM
GEN: Well appearing, NAD, WDWN
HEENT: Oral mucosa moist, no scleral icterus
Cardiac: Regular rate and rhythm, no murmurs
Lung: No respiratory distress, no tachypnea
MSK: No gross deformity or injuries
Skin: Good color, no pallor or jaundice, no rashes
Neuro: AO x3, moves all extremities freely, cranial nerves II through XII grossly intact, bilateral upper and lower extremity strength is intact in all herrmann and symmetric
Psych: Calm, cooperative
PLAN
A computed tomography (CT) scan of the brain is ordered to assess for possible bleeding, given the patients history and current symptoms.
DIFFERENTIAL DIAGNOSIS
The Differential Diagnosis includes, in no particular order and is not limited to:
1. Transient Ischemic Attack
2. Medication side effects (specifically from blood thinners)
3. Inner ear disorders
4. Anemia
5. Orthostatic hypotension
6. Vestibular migraine
7. Benign paroxysmal positional vertigo
8. Dehydration
9. Visual disturbances
10. Anxiety or panic disorder
Disposition:
SUMMARY OF ENCOUNTER
The patient is a 47-year-old male with a recent history of gastrointestinal bleed and pulmonary embolism, now on anticoagulants. He presented with a brief episode of blurred vision and dizziness, suspected as a vasovagal event due to borderline low
blood pressure in the emergency department. His symptoms resolved while in the emergency setting, and he did not appear clinically unstable. His laboratory results and CT scan were reassuring.
DISPOSITION
The patient is suitable for outpatient management.
PLAN
A computed tomography (CT) scan of the brain was ordered to assess for possible bleeding, considering the patients history and current symptoms.
MEDICAL DECISION MAKING
The patient presented with concerns related to dizziness and blurred vision, potentially linked to his anticoagulation therapy. Clinical decision-making involved consideration of possible vasovagal events due to recorded borderline low blood
pressures. The patients management requirements were assessed based on the encounters complexity and resolved symptoms. The possibility of hospitalization was considered but determined unnecessary given the patients stable condition by discharge.
Past History
Past History
ED Past Medical History: Psychiatric (Anxiety) and Other (Headaches, Deaf left ear. Valve disorder)
ED Past Surgical History: Other (Duodenum twisted and repaired at one week old., Cochlear implant, Hernia repair)
Social History
Tobacco: Non-smoker
Alcohol: None
Personal: Single
Living: with family
Employment: Employed
Family History
Family History: Other (Noncontributory)
Phy Exam
Physical Exam
Physical Exam:
.
Course
Orders/Labs/Results
Orders:
Orders
12/27/24 14:09
Electrocardiogram (*1) Urgent
Reason for Study: Vertigo / Dizzy
EKG- Treatment ONCE
12/27/24 14:19
Complete Blood Count/With Diff Urgent
Comprehensive Metabolic Panel Urgent
12/27/24 15:38
CT Head W/o Iv Contrast Urgent
Comment:
Reason For Exam: dizziness/blurry vision
Abnormal Lab Results
12/27/24
14:19
RBC 3.89 L 10^6/uL
(4.70-6.10)
Hgb 11.5 L g/dL
(13.0-18.0)
Hct 34.6 L %
(39.0-52.0)
Chloride 113 H mmol/L
(98-107)
Carbon Dioxide 21 L mmol/L
(22-30)
Glucose 120 H mg/dl
(70-99)
AST 15 L U/L
(17-59)
12/27/24 14:19
12/27/24 14:19
Vital Signs
Initial and Last Documented VS:
Initial Vital Signs
Temp Pulse Resp BP Pulse Ox
98.0 F 78 16 108/72 98
12/27/24 14:04 12/27/24 14:04 12/27/24 14:04 12/27/24 14:04 12/27/24 14:04
Last Documented Vital Signs
Temp Pulse Resp BP Pulse Ox
98.0 F 74 18 100/63 100
12/27/24 14:04 12/27/24 18:45 12/27/24 18:45 12/27/24 18:31 12/27/24 18:45
*Pulse Oximetry
Patient hypoxic: no
Comment: 100%
*Critical Care Note
Total Time (30-74mins, 75-104mins- exclusive of procedures): Not Applicable
ED Attending Note
-
Portions of this chart may have been created with voice recognition software.� Occasional wrong word or��sound alike� substitutions may have occurred due to the inherent limitations of voice recognition software.
Discharge Plan
Departure
Patient Disposition: Home (Routine Discharge)
Date of Disposition: 12/27/24
Time of Disposition: 18:47
Patient with high blood pressure during this ER visit?: No
Discharge Problem:
Dizziness
Instructions: Dizziness
Prescriptions:
No Action
acetaminophen [Tylenol Extra Strength] 500 MG tablet
500 mg PO Q6HPRN PRN (Reason: MILD PAIN)
multivitamin Tablet
1 tab PO DAILY
pantoprazole 40 mg Tablet,Delayed Release (Dr/Ec)
40 mg PO BID Qty: 60 0RF
metoprolol succinate [Toprol XL] 25 mg tablet extended release 24 hr
12.5 mg PO DAILY Qty: 30 1RF
topiramate 100 mg Tablet
100 mg PO BID Qty: 0 0RF
metoprolol succinate 25 mg Tablet Extended Release 24 Hr
12.5 mg PO DAILY Qty: 0 0RF
apixaban 5 mg (74 tabs) tablets,dose pack
See Rx Instructions .ROUTE .COMPLEX Qty: 74 0RF
Rx Instructions:
orally per package directions
sucralfate 1 gram tablet
1 g PO BID Qty: 28 0RF
Rx Instructions:
Take at least 2 hours apart from other medications
Referrals:
Isabela Bates PA-C [Family Provider, Family Practice]
Interventions
Interventions:
*Risk Screen - Suicide Last Done: 12/27/24 14:04
*General Assessment Last Done: 12/27/24 15:35
*Neglect/Abuse Screening Last Done: 12/27/24 14:04
*ED- Fall Risk Assessment Last Done: 12/27/24 15:35
*ED COVID-19 Vaccine History Last Done: 12/27/24 15:35
*Nursing Disposition Last Done: 12/27/24 19:00
ED- Neurological Assessment Last Done: 12/27/24 15:35
Discharge Date and Time
Discharge Date/Time: 12/27/24 19:00
Print Language: MARTINIQUAIS
== END 2024-12-27 19:00 | disposition home or self-care (01) ==
LOC: EMR 14:03
PROVIDERS: Emergency Medicine; EMERGENCY PHYSICIAN Student in an Organized Health Care Education/Training Program; FAMILY PHYSICIAN Physician Assistant Medical
DX: R42 Dizziness and giddiness (principal); H53.8 Other visual disturbances
CPT/HCPCS: 99284; 70450; 80053; 85025; 93005

== ENCOUNTER → 2025-01-06 09:23 | Outpatient (REF) | payer OTHER, SELFPAY ==
--- NOTE | 2025-01-06 10:20 | PTCARENOTE ---
Pt here for outpatient ECHO. BP 80/56 prior to study, BP 82/56 post ECHO. Pt asymptomatic. Dr. Llamas notified. Pt okay to go home as per Dr. Llamas. Pt told to monitor BP at home and if he becomes lighthead or dizzy go to ER.
== END ==
LOC: RCS 09:23
PROVIDERS: ATTENDING PHYSICIAN Thoracic Surgery (Cardiothoracic Vascular Surgery); FAMILY PHYSICIAN Physician Assistant Medical
DX: Z98.890 Other specified postprocedural states (principal)
CPT/HCPCS: 93308; 93321; 93325

== ENCOUNTER 2025-02-13 06:15 | Day surgery (SDC) | payer OTHER, SELFPAY ==
[2025-02-13 11:02] VITALS: BMI 21.7
[2025-02-13 11:03] VITALS: BMI 21.7
[2025-02-13 11:14] VITALS: BP 113/76
[2025-02-13 13:04] VITALS: BP 106/69
[2025-02-13 13:15] VITALS: BP 105/77
[2025-02-13 13:30] VITALS: BP 101/65
== END 2025-02-13 13:44 | disposition home or self-care (01) ==
LOC: SDS 06:15
PROVIDERS: ATTENDING PHYSICIAN Internal Medicine Gastroenterology
DX: T18.3XXA Foreign body in small intestine, initial encounter (principal); Z98.0 Intestinal bypass and anastomosis status; W44.8XXA Other foreign body entering into or through a natural orifice, initial encounter
CPT/HCPCS: 43239; 88305; 88342

== ENCOUNTER → 2025-04-04 07:40 | Outpatient (REF) | payer OTHER, SELFPAY | LOC: RAD 07:40 | PROVIDERS: ATTENDING PHYSICIAN Internal Medicine; FAMILY PHYSICIAN Physician Assistant Medical | DX: I26.99 Other pulmonary embolism without acute cor pulmonale (principal); J90 Pleural effusion, not elsewhere classified | CPT/HCPCS: 71275; Q9967 ==